=== PATIENT | female | born 1995 | race Caucasian/White ===

== ENCOUNTER 2020-03-11 18:11 | Outpatient (CLI) | payer OTHER ==
[2020-03-11 19:33] VITALS: BP 134/89; PULSE 117; RESP 16; TEMP 98
--- NOTE | 2020-03-19 10:02 | P.MSEPDOC ---
Presenting Problems - Arrival Data Date of Arrival on Unit: 03/11/20 Time of Arrival on Unit: 18:10 Mode of Transport: Ambulatory - Complaint OB-Reason for Admission/Chief Complaint: Rule Out SROM Medical History - Information : 1 Para: 0 Term: 0 : 0 Abortions: Spontaneous or Elective: 0 Number of Living Children: 0 - Gestational Age Gestational Age by SHAWN (wks/days): 33 Weeks and 5 Days - History Comment: leaking yellow discharge for 2 weeks. ? srom Review of Systems - Review of Systems Constitutional: No problems Breast: No problems ENT: No problems Cardiovascular: No problems Respiratory: No problems Gastrointestinal: No problems Genitourinary: No problems Musculoskeletal: No problems Neurological: No problems Skin: No problems Vital Signs - Temperature Temperature: 98.0 F Temperature Source: Temporal Artery Scan - Pulse Apical Pulse Rate: 117 Pulse Assessment Method: Auscultation - Respirations Respiratory Rate: 16 Oxygen Delivery Method: Room Air - Blood Pressure Right Arm Blood Pressure: 134/89 Blood Pressure Mean: 104 Blood Pressure Source: Automatic Cuff Medical Screen Scoring (Pre) - Cervical Exam Dilation: 0 cm = 0 Effacement: Exam Deferred Membranes: Intact - Uterine Contractions Frequency: N/A Duration: N/A Intensity: N/A - Maternal Vital Signs Maternal Temperature: N/A Maternal Blood Pressure: N/A Signs of Preeclampsia: N/A Maternal Respirations: N/A - Maternal Trauma Maternal Trauma: N/A - Assessment - Baby A Baseline FHR: 140 Heart Rate - NICHD Category: Category I (Normal) = 0 NST: Reactive Position: N/A Station: N/A - Total Score - Baby A Total Score - Baby A: 0 - Total Score - Baby B Total Score - Baby B: 0 - Total Score - Baby C Total Score - Baby C: 0 - Level of Risk - Baby A Level of Risk - Baby A: Low (0-5) - Level of Risk - Baby B Level of Risk - Baby B: Low (0-5) - Level of Risk - Baby C Level of Risk - Baby C: Low (0-5) Physician Notification (Pre) - Physician Notified Physician Notified Date: 03/11/20 Physician Notified Time: 19:00 New Order Received: Yes (may be discharged home with instructions) - Notification Comment Comment: neg amnisure. yellow small amt mucussy discharge noted with exam . closed thick high cervix. Disposition - Disposition OB Disposition: Discharge to home Discharge Date: 03/11/20 Discharge Time: 19:10 I agree with the RN Medical Screening Exam: Yes Risk & Benefit of care provided described in d/c instruction: Yes Diagnosis: FALSE LABOR BEFORE 37 COMPLETED WEEKS OF GEST, THIRD TRI
== END 2020-03-11 19:15 | disposition home or self-care (01) ==
LOC: FBPOP 18:11
PROVIDERS: ATTEND Obstetrics & Gynecology
DX: O47.00 False labor before 37 completed weeks of gestation, unspecified trimester (principal); Z3A.33 33 weeks gestation of pregnancy
CPT/HCPCS: 59025; 84112; G0463; 99213

== ENCOUNTER 2020-03-28 17:10 | Outpatient (CLI) | payer BC, OTHER ==
[2020-03-28] MEDS ORDERED: ACETAMINOPHEN TAB 325 MG TAB PO STA (17:56)
[2020-03-28 18:30] LABS: Basophils # (A) 0.1 k/uL (0-0.2); Basophils % (A) 1 %; Eosinophils # (A) 0.1 k/uL (0-0.7); Eosinophils % (A) 1 %; HCT 42.9 % (34.0-46.0); Lymphocytes # (A) 1.5 k/uL (1.0-4.8); Lymphocytes % (A) 10 %; MCH 30.5 pg (25.0-35.0); MCHC 32.6 g/dL (31.0-37.0); MCV 93.5 fL (80.0-100.0); Mean Platelet Volume 8.1; Monocytes # (A) 0.8 k/uL (0-1.0); Monocytes % (A) 5 %; Neutrophils # (A) 13.3 k/uL (1.3-7.7); Neutrophils % (A) 84 %; Platelet Count 236 k/uL (150-450); RBC 4.59 m/uL (3.80-5.40); RDW 12.6 % (11.5-15.5); WBC 15.9 k/uL (3.8-10.6)
[2020-03-28 18:45] VITALS: PULSE 113; RESP 16; TEMP 98
[2020-03-28 18:46] LABS: ALT 12 U/L (4-34); AST 20 U/L (14-36); African American GFR (CKD) >90 (>60 ml/min/1.73 sqM); Blood Urea Nitrogen 8 mg/dL (7-17); LDH 357 U/L (313-618); Non-African American GFR(CKD) >90 (>60 ml/min/1.73 sqM); Uric Acid 4.1 mg/dL (3.7-7.4)
[2020-03-28 19:05] LABS: Appearance,Urine Clear (Clear); Bilirubin,Urine Negative (Negative); Blood,Urine Negative (Negative); Color,Urine Light Yellow; Glucose,Urine (UA) Negative (Negative); Ketones,Urine Negative (Negative); Leukocyte Esterase,Urine Negative (Negative); Nitrite,Urine Negative (Negative); Protein,Urine Negative (Negative); Specific Gravity,Urine 1.008 (1.001-1.035); Urobilinogen,Urine <2.0 mg/dL (<2.0)
[2020-03-28 19:16] LABS: Protein/Creatinine Ratio,Urine 0.272
[2020-03-28 19:40] VITALS: BP 120/74
--- NOTE | 2020-03-29 06:16 | P.MSEPDOC ---
Presenting Problems - Arrival Data Date of Arrival on Unit: 03/28/20 Time of Arrival on Unit: 17:30 Mode of Transport: Ambulatory - Complaint OB-Reason for Admission/Chief Complaint: Possible Onset of Labor, Headache, Pain Comment: hernandez pain=5 and back pain=2-3 Medical History - Information : 1 Para: 0 Term: 0 : 0 Abortions: Spontaneous or Elective: 0 Number of Living Children: 0 - Gestational Age Gestational Age by SHAWN (wks/days): 36 Weeks and 1 Days - History Comment: states back pain and cramping since wednesday. lost "mucus plug" today. head ache all .day today Review of Systems - Review of Systems Constitutional: No problems Breast: No problems ENT: No problems Cardiovascular: No problems Respiratory: No problems Gastrointestinal: No problems Genitourinary: No problems Musculoskeletal: No problems Neurological: No problems Skin: No problems Vital Signs - Temperature Temperature: 98.0 F Temperature Source: Temporal Artery Scan - Pulse Right Apical Pulse Rate: 113 Pulse Assessment Method: Auscultation - Respirations Respiratory Rate: 16 - Blood Pressure Right Arm Blood Pressure: 120/74 Blood Pressure Mean: 89 Blood Pressure Source: Automatic Cuff Medical Screen Scoring (Pre) - Cervical Exam Dilation: 1-3 cm = 1 Effacement: Exam Deferred Membranes: Intact - Uterine Contractions Frequency: N/A Duration: N/A Intensity: N/A - Maternal Vital Signs Maternal Temperature: N/A Maternal Blood Pressure: N/A Signs of Preeclampsia: Headache = 1 Maternal Respirations: N/A - Maternal Trauma Maternal Trauma: N/A - Assessment - Baby A Baseline FHR: 135 Heart Rate - NICHD Category: Category I (Normal) = 0 NST: Reactive Position: N/A Station: N/A - Total Score - Baby A Total Score - Baby A: 2 - Total Score - Baby B Total Score - Baby B: 2 - Total Score - Baby C Total Score - Baby C: 2 - Level of Risk - Baby A Level of Risk - Baby A: Low (0-5) - Level of Risk - Baby B Level of Risk - Baby B: Low (0-5) - Level of Risk - Baby C Level of Risk - Baby C: Low (0-5) Physician Notification (Pre) - Physician Notified Physician Notified Date: 03/28/20 Physician Notified Time: 18:10 New Order Received: Yes ([facility] LABS) Medical Screen Scoring (Post) - Cervical Exam Dilation: Exam Deferred Effacement: Exam Deferred Membranes: Intact - Uterine Contractions Frequency: > 5 minutes apart = 1 Duration: N/A Intensity: N/A - Maternal Vital Signs Maternal Temperature: N/A Maternal Blood Pressure: N/A Signs of Preeclampsia: N/A Maternal Respirations: N/A - Pain Assessment Pain Scale Used: Numeric (1 - 10) Pain Intensity: 0 - Maternal Trauma Maternal Trauma: N/A - Assessment - Baby A Heart Rate: 130 Heart Rate - NICHD Category: Category I (Normal) = 0 NST: Reactive Position: N/A Station: N/A - Total Score Total Score - Baby A: 1 Total Score - Baby B: 1 Total Score - Baby C: 1 - Post Treatment Level of Risk Post Treatment Level of Risk - Baby A: Low (0-5) Post Treatment Level of Risk - Baby B: Low (0-5) Post Treatment Level of Risk - Baby C: Low (0-5) Physician Notification (Post) - Physician Notified Physician Notified Date: 03/28/20 Physician Notified Time: 19:25 Physician/Practitioner Notified:: Dr. Smith Spoke With: Dr. Smith New Order Received: Yes - Notification Comment Comment: Dr. Smith called, report given on pt's labs WNL, protein/visitor information assistant ratio 0.272,. AST/ALT WNL, no protein in the urine. Pt's most recent BP was 120/74 and BPs have been. trending down since initial admission. Pt denies any HERNANDEZ or other symptoms and has her. next appointment on . Orders to discharge pt home with instructions to monitor for. s/s of PIH and call office tomorrow to make an appointment with Dr. Newberry for wednesday. instead of . Disposition - Disposition OB Disposition: Discharge to home Discharge Date: 03/28/20 Discharge Time: 19:30 I agree with the RN Medical Screening Exam: Yes Risk & Benefit of care provided described in d/c instruction: Yes Diagnosis: GESTATIONAL HTN W/O SIGNIFICANT PROTEINURIA, THIRD TRIMESTER
== END 2020-03-28 19:30 | disposition home or self-care (01) ==
LOC: FBPOP 17:10
PROVIDERS: ATTEND Obstetrics & Gynecology
DX: O13.2 Gestational [pregnancy-induced] hypertension without significant proteinuria, second trimester (principal); Z3A.36 36 weeks gestation of pregnancy
CPT/HCPCS: 59025; 81003; 82565; 82570; 83615; 84156; 84450; 84460; 84520; 84550; 85025; 99215

== ENCOUNTER 2020-04-09 17:36 | Inpatient (IN) | payer BC, OTHER ==
[2020-04-09] MEDS ORDERED: METHYLERGONOVINE 0.2 MG/ML 1 ML AMP IM PRN (18:57)
[2020-04-09] MEDS ORDERED: CARBOPROST TROMETHAMINE 250 MCG/ML 1 ML AMP IM PRN (18:57)
[2020-04-09] MEDS ORDERED: LIDOCAINE 0.5% (PF) 5 MG/ML (50 ML SDV) SQ PRN (18:57)
[2020-04-09] MEDS ORDERED: OXYTOCIN 10 UNIT/ML 1 ML VIAL IM PRN (18:57)
[2020-04-09] MEDS ORDERED: TERBUTALINE 1 MG/ML VIAL SQ PRN (18:57)
[2020-04-09] MEDS ORDERED: AMPICILLIN 2,000 MG in SODIUM CHLORIDE 0.9% 100 ML IVPB STA (18:57)
[2020-04-09] MEDS ORDERED: OXYTOCIN 30 UNITS/500 ML NS 30 UNIT in SALINE 1 500ML.BAG IV SCH (19:00)
[2020-04-09] MEDS: LACTATED RINGERS 1,000 ML IV SCH (19:52)
[2020-04-09 19:56] LABS: Appearance,Urine Clear (Clear); Bilirubin,Urine Negative (Negative); Blood,Urine Negative (Negative); Color,Urine Colorless; Glucose,Urine (UA) Negative (Negative); Ketones,Urine 1+ (Negative); Leukocyte Esterase,Urine Negative (Negative); Nitrite,Urine Negative (Negative); Protein,Urine Negative (Negative); Specific Gravity,Urine 1.003 (1.001-1.035); Urobilinogen,Urine <2.0 mg/dL (<2.0)
[2020-04-09 20:01] LABS: Basophils # (A) 0.2 k/uL (0-0.2); Basophils % (A) 1 %; Eosinophils # (A) 0.2 k/uL (0-0.7); Eosinophils % (A) 1 %; HCT 42.9 % (34.0-46.0); Lymphocytes # (A) 1.4 k/uL (1.0-4.8); Lymphocytes % (A) 8 %; MCH 30.1 pg (25.0-35.0); MCHC 32.6 g/dL (31.0-37.0); MCV 92.2 fL (80.0-100.0); Mean Platelet Volume 8.7; Monocytes # (A) 0.5 k/uL (0-1.0); Monocytes % (A) 3 %; Neutrophils # (A) 14.9 k/uL (1.3-7.7); Neutrophils % (A) 86 %; Platelet Count 238 k/uL (150-450); RBC 4.65 m/uL (3.80-5.40); RDW 12.6 % (11.5-15.5); WBC 17.3 k/uL (3.8-10.6)
[2020-04-09 20:13] LABS: ALT 10 U/L (4-34); AST 22 U/L (14-36); African American GFR (CKD) >90 (>60 ml/min/1.73 sqM); Blood Urea Nitrogen 7 mg/dL (7-17); Non-African American GFR(CKD) >90 (>60 ml/min/1.73 sqM); Uric Acid 4.6 mg/dL (3.7-7.4)
[2020-04-09 20:18] LABS: Protein/Creatinine Ratio,Urine 0.639
[2020-04-09 20:23] LABS: INR 0.9 (<1.2); Prothrombin Time 9.3 sec (9.0-12.0)
[2020-04-09] MEDS ORDERED: BUTORPHANOL 1 MG/ML 1 ML VIAL IV PRN (21:10)
[2020-04-09] MEDS: AMPICILLIN 1,000 MG in SODIUM CHLORIDE 0.9% 50 ML IVPB SCH (23:56)
--- NOTE | 2020-04-10 00:44 | P.MSEPDOC ---
Presenting Problems - Arrival Data Date of Arrival on Unit: 04/09/20 Time of Arrival on Unit: 18:42 Mode of Transport: Ambulatory - Complaint OB-Reason for Admission/Chief Complaint: Possible Onset of Labor Comment: pt arrived c/o contractions since noon today but denies any leaking of fluid. pt states her b/p has been up last week and she had lab drawn at that time Medical History - Information : 1 Para: 0 Term: 0 : 0 Abortions: Spontaneous or Elective: 0 Number of Living Children: 0 - Gestational Age Gestational Age by SHAWN (wks/days): 37 Weeks and 6 Days - History Complications: Preeclampsia, GBS+ Review of Systems - Review of Systems Constitutional: No problems Breast: No problems ENT: No problems Cardiovascular: No problems Respiratory: No problems Gastrointestinal: No problems Genitourinary: No problems Musculoskeletal: No problems Neurological: No problems Skin: No problems Vital Signs - Pulse Right Brachial Pulse Rate: 109 Pulse Assessment Method: Automatic Cuff - Respirations Respiratory Rate: 16 Oxygen Delivery Method: Room Air - Blood Pressure Right Arm Blood Pressure: 136/97 Blood Pressure Mean: 110 Blood Pressure Source: Automatic Cuff Medical Screen Scoring (Pre) - Cervical Exam Dilation: 1-3 cm = 1 Effacement: More than 50% = 2 Membranes: Intact - Uterine Contractions Frequency: > or = 36 weeks =2 Duration: > 40 seconds = 2 Intensity: N/A - Maternal Vital Signs Maternal Temperature: N/A Maternal Blood Pressure: Diastolic > 89 = 1 Signs of Preeclampsia: N/A Maternal Respirations: N/A - Maternal Trauma Maternal Trauma: N/A - Assessment - Baby A Baseline FHR: 130 Heart Rate - NICHD Category: Category I (Normal) = 0 NST: Reactive Position: N/A Station: N/A - Total Score - Baby A Total Score - Baby A: 8 - Total Score - Baby B Total Score - Baby B: 8 - Total Score - Baby C Total Score - Baby C: 8 - Level of Risk - Baby A Level of Risk - Baby A: Medium (6-9) - Level of Risk - Baby B Level of Risk - Baby B: Medium (6-9) - Level of Risk - Baby C Level of Risk - Baby C: Medium (6-9) Physician Notification (Pre) - Physician Notified Physician Notified Date: 04/09/20 Physician Notified Time: 18:40 New Order Received: Yes - Notification Comment Comment: admit pt for induction of labor and do preeclampsia workup Disposition - Disposition OB Disposition: Admit I agree with the RN Medical Screening Exam: Yes Risk & Benefit of care provided described in d/c instruction: Yes Diagnosis: UNSPECIFIED PRE-ECLAMPSIA, THIRD TRIMESTER
[2020-04-10] MEDS: AMPICILLIN 1,000 MG in SODIUM CHLORIDE 0.9% 50 ML IVPB SCH ×2 (03:59→08:05)
[2020-04-10] MEDS: LACTATED RINGERS 1,000 ML IV SCH ×2 (04:00→05:39)
[2020-04-10] MEDS ORDERED: ROPIVACAINE 5MG/ML 20ML VIAL ONE (05:11)
[2020-04-10] MEDS ORDERED: SODIUM CHLORIDE 0.9% 100 ML BAG ONE (05:11)
[2020-04-10] MEDS ORDERED: fentaNYL (PF) 50 MCG/ML 5 ML AMP ONE (05:11)
--- NOTE | 2020-04-10 06:22 | P.HPOB ---
History of Present Illness H&P Date: 04/09/20 Chief Complaint: contractions, high bp J4-year-old presents at 37 weeks and 6 days complaining of contractions. Her cervix was only 1-2 cm dilated, 70% effaced, and -2 station. She was hailey every 3-5 minutes. heart tones 135 with moderate variability and reactive. When she presented her blood pressure was also quite elevated at 140/100. She had a previous episode of high blood pressures a week ago so the very least she has gestational hypertension which requires delivery. When she is admitted labs were drawn and the PC ratio was 0.6, indicating preeclampsia. She denies headache, nausea, right upper quadrant pain, vision changes, fever or chills. She is being admitted for induction of labor. Review of Systems All systems: negative Constitutional: Denies chills, Denies fever Eyes: denies blurred vision, denies pain Ears, nose, mouth and throat: Denies headache, Denies sore throat Cardiovascular: Denies chest pain, Denies shortness of breath Respiratory: Denies cough Gastrointestinal: Denies abdominal pain, Denies diarrhea, Denies nausea, Denies vomiting Genitourinary: Denies dysuria, Denies hematuria Musculoskeletal: Denies myalgias Integumentary: Denies pruritus, Denies rash Neurological: Denies numbness, Denies weakness Psychiatric: Denies anxiety, Denies depression Endocrine: Denies fatigue, Denies weight change Past Medical History Past Medical History: No Reported History Additional Past Medical History / Comment(s): Obstetrical history: This is her first . Her blood type is O+, abs negative, rubella nonimmune, hepatitis B B-, HIV negative, GBS positive. She had an episode of some high blood pressures last week that resolved and presented labs were normal. This week when she came in with high blood pressure her labs indicated she does have preeclampsia. History of Any Multi-Drug Resistant Organisms: None Reported Past Surgical History: Appendectomy Past Anesthesia/Blood Transfusion Reactions: No Reported Reaction Past Psychological History: No Psychological Hx Reported Smoking Status: Former smoker Past Drug Use History: None Reported - Past Family History Father Family Medical History: Hyperlipidemia, Hypertension Medications and Allergies Home Medications Medication Instructions Recorded Confirmed Type Pnv,Calcium 72/Iron/Folic Acid 1 each PO DAILY 03/11/20 04/09/20 History [ Plus Tablet] Allergies Allergy/AdvReac Type Severity Reaction Status Date / Time No Known Allergies Allergy Verified 04/09/20 17:39 Exam Osteopathic Statement: *. No significant issues noted on an osteopathic structural exam other than those noted in the History and Physical/Consult. Vital Signs Pulse Resp BP 04/10/20 00:44 109 H 16 136/97 04/09/20 19:10 109 H 16 136/97 04/09/20 18:53 109 H 16 136/97 Intake and Output 04/09/20 04/09/20 04/10/20 14:59 22:59 06:59 Other: # Voids 1 Weight 91.626 kg Heart: Regular rate and rhythm Lungs: Clear to auscultation bilaterally Abdomen: Soft, nontender Extremities: Negative Homans sign Results Result Diagrams: 04/09/20 19:49 04/09/20 19:49 Abnormal Lab Results - Last 24 Hours (Table) 04/09/20 04/09/20 04/09/20 Range/Units 19:01 19:49 19:49 WBC 17.3 H (3.8-10.6) k/uL Neutrophils # 14.9 H (1.3-7.7) k/uL Fibrinogen 540 H (200-500) mg/dL Urine Ketones 1+ H (Negative) Assessment and Plan (1) Preeclampsia Current Visit: Yes Status: Acute Code(s): O14.90 - UNSPECIFIED PRE- ECLAMPSIA, UNSPECIFIED TRIMESTER SNOMED Code(s): 033148864 Plan: 1. Admit to family place 2. Monitor closely 3. Induction of labor with amniotomy and Pitocin 4. Anticipate normal vaginal delivery
[2020-04-10] MEDS ORDERED: LANOLIN CREAM 5 GM TUBE TOPICAL PRN (08:51)
[2020-04-10] MEDS ORDERED: BENZOCAINE/MENTHOL SPRAY 1 GM/SPRAY AEROSOL TOPICAL PRN (08:51)
[2020-04-10] MEDS ORDERED: ZOLPIDEM 5 MG TAB PO PRN (08:51)
[2020-04-10] MEDS ORDERED: MEASLES-MUMPS-RUBELLA VACC/PF 12,500 UNIT/0.5 ML VIAL SQ ONE (08:51)
[2020-04-10] MEDS ORDERED: diphenhydrAMINE 50 MG/ML 1 ML VIAL IVP PRN ×2 (08:51)
[2020-04-10] MEDS ORDERED: ACETAMINOPHEN TAB 325 MG TAB PO PRN (08:51)
[2020-04-10] MEDS ORDERED: diphenhydrAMINE 50 MG CAP PO PRN (08:51)
[2020-04-10] MEDS ORDERED: diphenhydrAMINE 25 MG CAP PO PRN (08:51)
[2020-04-10] MEDS ORDERED: HYDROCORTISONE 2.5% RECTAL CREAM 30 GM TUBE RECTAL PRN (08:51)
[2020-04-10] MEDS ORDERED: SIMETHICONE 80 MG CHEWABLE PO PRN (08:51)
--- NOTE | 2020-04-10 08:51 | P.PROBDLV ---
Vaginal Delivery Note - . Vaginal Delivery Note: 24-year-old presents at 37 weeks and 6 days admitted for induction of labor due to preeclampsia. Her cervix was only 1-2 cm dilated, 70% effaced, and -2 station. She was hailey every 3-5 minutes. heart tones 135 with moderate variability and reactive. Ampicillin was started for GBS prophylaxis Pitocin was started. Amniotomy performed at 20-36 and patient was 2-37 m dilated, 70% effaced, and -2 station. She is hailey every 2-4 minutes. Fe blanca heart tones 135 with moderate variability and reactive. She progressed slowly throughout the night and when she was 4 cm she did get an epidural around 5 AM. She quickly progressed to complete at 8:08 AM, pushed and delivered a viable male over midline episiotomy under epidural anesthesia at 8:20 AM. The patient had pushed to a large crown but could not get the baby past that episiotomy had been made. Head delivered OA, anterior shoulder delivered gentle downward guidance for by posterior shoulder and rest of body. Nose and mouth bulb suctioned, cord clamped and cut, placed on mother's abdomen. Apgars 9, 9, weight 6 lbs. 15 oz. Placenta delivered spontaneously, intact with three- vessel cord at 831. Vagina, cervix, and perineum were inspected. Second-degree midline episiotomy was repaired with 2-0 Vicryl and 3-0 Vicryl. Estimated blood loss 500 mL. Mother and baby in stable condition.
[2020-04-10] MEDS ORDERED: OXYTOCIN 20 UNITS/1000 ML NS 1,000 ML IV SCH (09:00)
[2020-04-10] MEDS: SENNOSIDES-DOCUSATE SODIUM 1 EACH TAB PO SCH ×2 (09:17→20:27)
[2020-04-10] MEDS: IBUPROFEN 600 MG TAB PO PRN ×2 (09:18→20:28)
[2020-04-10 20:47] VITALS: RESP 18
[2020-04-11] MEDS: IBUPROFEN 600 MG TAB PO PRN (04:22)
[2020-04-11 07:28] LABS: Basophils # (A) 0.1 k/uL (0-0.2); Basophils % (A) 0 %; Eosinophils # (A) 0.1 k/uL (0-0.7); Eosinophils % (A) 1 %; HCT 30.8 % (34.0-46.0); Lymphocytes # (A) 2.4 k/uL (1.0-4.8); Lymphocytes % (A) 18 %; MCH 30.9 pg (25.0-35.0); MCHC 33.2 g/dL (31.0-37.0); MCV 93.1 fL (80.0-100.0); Mean Platelet Volume 9.3; Monocytes # (A) 0.7 k/uL (0-1.0); Monocytes % (A) 6 %; Neutrophils % (A) 75 %; Platelet Count 168 k/uL (150-450); RBC 3.31 m/uL (3.80-5.40); RDW 12.5 % (11.5-15.5); WBC 13.5 k/uL (3.8-10.6)
[2020-04-11 07:41] LABS: HGB 10.2 gm/dL (11.4-16.0)
[2020-04-11 07:47] VITALS: BP 113/71; PULSE 66; TEMP 97.7
--- NOTE | 2020-04-11 09:12 | P.DS ---
Providers Date of admission: 04/09/20 18:44 Expected date of discharge: 04/11/20 Attending physician: Kenrda Newberry Primary care physician: Stated None - Discharge Diagnosis(es) (1) Preeclampsia Current Visit: Yes Status: Acute (2) Normal vaginal delivery Current Visit: Yes Status: Acute Hospital Course: Patient presented for induction of labor for preeclampsia. She underwent normal vaginal delivery. course was uncomplicated. She denies headache, nausea, right upper quadrant pain, vision changes, sinus of breath or any chest pain. Her blood pressures have been normal. She'll be discharged home day #1 in stable condition to follow-up with me in 6 weeks. Plan - Discharge Summary New Discharge Prescriptions: New Ibuprofen [Motrin] 600 mg PO Q6HR PRN #30 tab PRN Reason: Mild Pain Or Fever >= 100.5 No Action Pnv,Calcium 72/Iron/Folic Acid [ Plus Tablet] 1 each PO DAILY Discharge Medication List Pnv,Calcium 72/Iron/Folic Acid [ Plus Tablet] 1 each PO DAILY 03/11/20 [History] Ibuprofen [Motrin] 600 mg PO Q6HR PRN #30 tab 04/11/20 [Rx] Follow up Appointment(s)/Referral(s): Kendra Newberry DO [Doctor of Osteopathic Medicine] - 6 Weeks Discharge Disposition: HOME SELF-CARE
[2020-04-11] MEDS ORDERED: INFLUENZA VACCINE (6 MOS+) 60 MCG/0.5 ML SYRINGE IM ONE (11:00)
== END 2020-04-11 13:45 | disposition home or self-care (01) | DRG 807 ==
LOC: FBPOP 17:36 → 4FBP 18:44
PROVIDERS: ADMIT Obstetrics & Gynecology; ATTEND Obstetrics & Gynecology
PROC: 3E0R3BZ Introduction of Anesthetic Agent into Spinal Canal, Percutaneous Approach (ICD-10-PCS; principal; 2020-04-10)
PROC: 0W8NXZZ Division of Female Perineum, External Approach (ICD-10-PCS; principal; 2020-04-10)
PROC: 3E033VJ Introduction of Other Hormone into Peripheral Vein, Percutaneous Approach (ICD-10-PCS; principal; 2020-04-10)
PROC: 3E0134Z Introduction of Serum, Toxoid and Vaccine into Subcutaneous Tissue, Percutaneous Approach (ICD-10-PCS; principal; 2020-04-10)
PROC: 00HU33Z Insertion of Infusion Device into Spinal Canal, Percutaneous Approach (ICD-10-PCS; principal; 2020-04-10)
PROC: 10907ZC Drainage of Amniotic Fluid, Therapeutic from Products of Conception, Via Natural or Artificial Opening (ICD-10-PCS; principal; 2020-04-10)
PROC: 10E0XZZ Delivery of Products of Conception, External Approach (ICD-10-PCS; principal; 2020-04-10)
PROC: 3E02340 Introduction of Influenza Vaccine into Muscle, Percutaneous Approach (ICD-10-PCS; 2020-04-11)
DX: O14.94 Unspecified pre-eclampsia, complicating childbirth (principal); Z37.0 Single live birth; Z3A.37 37 weeks gestation of pregnancy; O99.824 Streptococcus B carrier state complicating childbirth; Z79.899 Other long term (current) drug therapy; Z87.891 Personal history of nicotine dependence; Z90.49 Acquired absence of other specified parts of digestive tract; Z87.19 Personal history of other diseases of the digestive system; Z98.890 Other specified postprocedural states; Z82.49 Family history of ischemic heart disease and other diseases of the circulatory system; Z83.49 Family history of other endocrine, nutritional and metabolic diseases; Z23 Encounter for immunization
CPT/HCPCS: 59025; 81003; 82565; 82570; 84156; 84450; 84460; 84520; 84550; 85025; 85384; 85610; 85730; 86850; 86900; 86901; 88307; 90686; 90707; 99215

== ENCOUNTER 2021-08-08 14:53 | Emergency (ER) | payer BC, OTHER ==
[2021-08-08 15:11] VITALS: TEMP 98.1
[2021-08-08] MEDS ORDERED: MORPHINE SULFATE 2 MG/ML SYRINGE IVP STA (15:58)
[2021-08-08] MEDS ORDERED: ONDANSETRON 4 MG/2 ML VIAL IVP STA (15:58)
[2021-08-08] MEDS ORDERED: FAMOTIDINE 20 MG/2 ML VIAL IV STA (15:58)
[2021-08-08] MEDS ORDERED: diphenhydrAMINE 50 MG/ML 1 ML VIAL IVP STA (15:58)
[2021-08-08] MEDS ORDERED: SODIUM CHLORIDE 0.9% 1,000 ML IV STA (15:58)
[2021-08-08 16:00] LABS: Appearance,Urine Clear (Clear); Basophils % (A) 0 %; Bilirubin,Urine Negative (Negative); Blood,Urine Negative (Negative); Color,Urine Light Yellow; Eosinophils # (A) 0.1 k/uL (0-0.7); Eosinophils % (A) 2 %; Glucose,Urine (UA) Negative (Negative); HCT 46.3 % (34.0-46.0); HGB 14.8 gm/dL (11.4-16.0); Ketones,Urine Negative (Negative); Leukocyte Esterase,Urine Negative (Negative); Lymphocytes # (A) 1.4 k/uL (1.0-4.8); Lymphocytes % (A) 20 %; MCH 30.6 pg (25.0-35.0); MCV 95.7 fL (80.0-100.0); Mean Platelet Volume 8.6; Monocytes # (A) 0.3 k/uL (0-1.0); Monocytes % (A) 5 %; Neutrophils % (A) 72 %; Nitrite,Urine Negative (Negative); PH, Urine 6.5 (5.0-8.0); Platelet Count 302 k/uL (150-450); Protein,Urine Negative (Negative); RBC 4.84 m/uL (3.80-5.40); RDW 12.7 % (11.5-15.5); Specific Gravity,Urine 1.006 (1.001-1.035); Urobilinogen,Urine <2.0 mg/dL (<2.0); WBC 6.9 k/uL (3.8-10.6)
[2021-08-08 16:09] LABS: ALT 12 U/L (4-34); AST 19 U/L (14-36); African American GFR (CKD) >90 (>60 ml/min/1.73 sqM); Albumin 4.7 g/dL (3.5-5.0); Alkaline Phosphatase 84 U/L (38-126); Amylase 74 U/L (30-110); Anion Gap 11 mmol/L; Blood Urea Nitrogen 10 mg/dL (7-17); Calcium 9.4 mg/dL (8.4-10.2); Carbon Dioxide 21 mmol/L (22-30); Chloride 108 mmol/L (98-107); Glucose 95 mg/dL (74-99); Lipase 259 U/L (23-300); Non-African American GFR(CKD) 81 (>60 ml/min/1.73 sqM); Sodium 140 mmol/L (137-145); Total Bilirubin 0.6 mg/dL (0.2-1.3)
[2021-08-08 16:30] LABS: Partial Thromboplastin Time 24.8 sec (22.0-30.0)
--- NOTE | 2021-08-08 16:32 | ED ---
General Adult HPI - General Chief complaint: Abdominal Pain Stated complaint: chest/Abd pain Time Seen by Provider: 08/08/21 15:16 Source: patient, RN notes reviewed, old records reviewed Mode of arrival: ambulatory Limitations: no limitations - History of Present Illness Initial comments: Patient is a 26-year-old female with past medical history remarkable for nothing, resents concerned for possible "gallbladder attacks." She denies any history of workup for this pain, however hasthat she get some right upper quadrant and epigastric abdominal discomfort with pain and nausea and vomiting. It is been more persistent over the last 4 days. She states she did have episodes of nonbilious nonbloody emesis yesterday. Denies any chest pain, shortness of breath, fevers, chills, sick contacts. States she is not . Denies any diarrhea. Has no other acute point at this time. Denies any history of abdominal surgeries. Denies any dysuria or hematuria. Denies any vaginal discharge or bleeding. Has no other acute complaints at this time. Describes the pain as an achy, sharp sensation that does radiate to her right shoulder. Denies any history of drug use, alcohol abuse, pancreatitis. - Related Data Home Medications Medication Instructions Recorded Confirmed Ondansetron Odt [Zofran Odt] 8 mg PO Q8H PRN 08/08/21 08/08/21 SUMAtriptan succinate [Imitrex] 50 mg PO BID PRN 08/08/21 08/08/21 Topiramate [Trokendi Xr] 50 mg PO DAILY 08/08/21 08/08/21 Previous Rx's Medication Instructions Recorded Famotidine [Pepcid] 20 mg PO DAILY 14 Days #14 tablet 08/08/21 Mag Hydrox/Al Hydrox/Simeth 30 ml PO BID PRN #500 ml 08/08/21 [Maalox] Allergies Allergy/AdvReac Type Severity Reaction Status Date / Time No Known Allergies Allergy Verified 08/08/21 16:27 Review of Systems ROS Statement: Those systems with pertinent positive or pertinent negative responses have been documented in the HPI. Review of Systems: CONST: Denies fever EYES: Denies blurry vision ENT: Denies nasal congestion C/V: Denies Chest pain RESP: Denies shortness of breath GI: Endorses abdominal pain : Denies dysuria SKIN: Denies rash. MSK: Denies joint pain. NEURO: Denies headache ROS Other: All systems not noted in ROS Statement are negative. Past Medical History Past Medical History: No Reported History Additional Past Medical History / Comment(s): migraines History of Any Multi-Drug Resistant Organisms: None Reported Past Surgical History: Appendectomy Past Anesthesia/Blood Transfusion Reactions: No Reported Reaction Past Psychological History: No Psychological Hx Reported Smoking Status: Former smoker, Vaper Past Alcohol Use History: Occasional Past Drug Use History: None Reported - Past Family History Father Family Medical History: Hyperlipidemia, Hypertension General Exam - General Exam Comments Initial Comments: General: Appears in no acute distress. HEAD: Normal with no signs of head trauma. EYES: PERRLA, EOMI, conjunctiva normal, no discharge. ENT: Hearing grossly intact, normal oropharynx. RESPIRATORY: Clear breath sounds bilaterally. No wheezes, rales, or rhonchi. C/V: Regular rate and rhythm. S1 and S2 auscultated, no edema, peripheral pulses 2+ and intact throughout ABD: Abdomen soft, nondistended. Mildly tender to palpation epigastric and right upper quadrant. No guarding. No peritoneal signs. No rebound tenderness. Relatively unremarkable abdominal exam. EXT: Normal range of motion, no obvious deformity SKIN: No rashes or lesions observed on exposed skin. NEURO: Alert and oriented 4. Limitations: no limitations Course Vital Signs 08/08/21 08/08/21 15:08 18:05 Temperature 98.1 F Pulse Rate 91 83 Respiratory 20 18 Rate Blood Pressure 142/91 134/93 O2 Sat by Pulse 100 100 Oximetry Medical Decision Making - Medical Decision Making Based on the patient's presentation and physical exam, I'm concerned for possible hepatobiliary pathology for current symptoms, cannot rule out cho lecystitis or biliary colic. We will obtain a right upper quadrant ultrasound as well as abdominal laboratory studies. Patient will be fluid hydrated as well as empirically treated with IV Zofran, morphine, famotidine, Benadryl. She was in agreement with this plan. Patient's ultrasound was unremarkable. Laboratory studies were remarkable for a normal urine study. Abdominal labs are unremarkable otherwise. On reevaluation, patient is feeling improved. I did discuss results of her imaging and labs with her. She is tolerating by mouth intake. I do believe it is safe for her to be discharged home at this time. She was in agreement this plan. test is pending, however she states that she is not . Advise she use a bland diet over the next few days return if any of her symptoms worsen. She was in agreement this plan. I will provide the patient with a prescription for Maalox, famotidine. I instructed the patient to follow up with their PCP in the next 3 days. [I provided contact information for follow up with] gastroenterology. I explained that the patient should return to the emergency department if they experience any worsening symptoms. Strict return precautions were discussed with the patient. The patient expressed understanding of these instructions. I answered all questions that the patient had. The patient was discharged home in. Condition with their prescriptions and follow up information. - Lab Data Result diagrams: 08/08/21 15:50 08/08/21 15:50 Lab Results 08/08/21 08/08/21 08/08/21 Range/Units 15:50 15:50 15:50 WBC 6.9 (3.8-10.6) k/uL RBC 4.84 (3.80-5.40) m/uL Hgb 14.8 (11.4-16.0) gm/dL Hct 46.3 H (34.0-46.0) % MCV 95.7 (80.0-100.0) fL MCH 30.6 (25.0-35.0) pg MCHC 32.0 (31.0-37.0) g/dL RDW 12.7 (11.5-15.5) % Plt Count 302 (150-450) k/uL MPV 8.6 Neutrophils % 72 % Lymphocytes % 20 % Monocytes % 5 % Eosinophils % 2 % Basophils % 0 % Neutrophils # 5.0 (1.3-7.7) k/uL Lymphocytes # 1.4 (1.0-4.8) k/uL Monocytes # 0.3 (0-1.0) k/uL Eosinophils # 0.1 (0-0.7) k/uL Basophils # 0.0 (0-0.2) k/uL PT 11.0 (9.0-12.0) sec INR 1.0 (<1.2) APTT 24.8 (22.0-30.0) sec Sodium (137-145) mmol/L Potassium (3.5-5.1) mmol/L Chloride (98-107) mmol/L Carbon Dioxide (22-30) mmol/L Anion Gap mmol/L BUN (7-17) mg/dL Creatinine (0.52-1.04) mg/dL Est GFR (CKD-EPI)AfAm (>60 ml/min/1.73 sqM) Est GFR (CKD-EPI)NonAf (>60 ml/min/1.73 sqM) Glucose (74-99) mg/dL Calcium (8.4-10.2) mg/dL Total Bilirubin (0.2-1.3) mg/dL AST (14-36) U/L ALT (4-34) U/L Alkaline Phosphatase (38-126) U/L Total Protein (6.3-8.2) g/dL Albumin (3.5-5.0) g/dL Amylase (30-110) U/L Lipase (23-300) U/L Urine Color Light Yellow Urine Appearance Clear (Clear) Urine pH 6.5 (5.0-8.0) Ur Specific Challenge 1.006 (1.001-1.035) Urine Protein Negative (Negative) Urine Glucose (UA) Negative (Negative) Urine Ketones Negative (Negative) Urine Blood Negative (Negative) Urine Nitrite Negative (Negative) Urine Bilirubin Negative (Negative) Urine Urobilinogen <2.0 (<2.0) mg/dL Ur Leukocyte Esterase Negative (Negative) 08/08/21 Range/Units 15:50 WBC (3.8-10.6) k/uL RBC (3.80-5.40) m/uL Hgb (11.4-16.0) gm/dL Hct (34.0-46.0) % MCV (80.0-100.0) fL MCH (25.0-35.0) pg MCHC (31.0-37.0) g/dL RDW (11.5-15.5) % Plt Count (150-450) k/uL MPV Neutrophils % % Lymphocytes % % Monocytes % % Eosinophils % % Basophils % % Neutrophils # (1.3-7.7) k/uL Lymphocytes # (1.0-4.8) k/uL Monocytes # (0-1.0) k/uL Eosinophils # (0-0.7) k/uL Basophils # (0-0.2) k/uL PT (9.0-12.0) sec INR (<1.2) APTT (22.0-30.0) sec Sodium 140 (137-145) mmol/L Potassium 4.0 (3.5-5.1) mmol/L Chloride 108 H (98-107) mmol/L Carbon Dioxide 21 L (22-30) mmol/L Anion Gap 11 mmol/L BUN 10 (7-17) mg/dL Creatinine 0.96 (0.52-1.04) mg/dL Est GFR (CKD-EPI)AfAm >90 (>60 ml/min/1.73 sqM) Est GFR (CKD-EPI)NonAf 81 (>60 ml/min/1.73 sqM) Glucose 95 (74-99) mg/dL Calcium 9.4 (8.4-10.2) mg/dL Total Bilirubin 0.6 (0.2-1.3) mg/dL AST 19 (14-36) U/L ALT 12 (4-34) U/L Alkaline Phosphatase 84 (38-126) U/L Total Protein 8.0 (6.3-8.2) g/dL Albumin 4.7 (3.5-5.0) g/dL Amylase 74 (30-110) U/L Lipase 259 (23-300) U/L Urine Color Urine Appearance (Clear) Urine pH (5.0-8.0) Ur Specific Challenge (1.001-1.035) Urine Protein (Negative) Urine Glucose (UA) (Negative) Urine Ketones (Negative) Urine Blood (Negative) Urine Nitrite (Negative) Urine Bilirubin (Negative) Urine Urobilinogen (<2.0) mg/dL Ur Leukocyte Esterase (Negative) Disposition Clinical Impression: Nausea and vomiting, Abdominal pain of unknown etiology Disposition: HOME SELF-CARE Condition: Good Instructions (If sedation given, give patient instructions): Acute Nausea and Vomiting (ED), Abdominal Pain (ED) Prescriptions: Mag Hydrox/Al Hydrox/Simeth [Maalox] 30 ml PO BID PRN #500 ml PRN Reason: Dyspepsia Famotidine [Pepcid] 20 mg PO DAILY 14 Days #14 tablet Is patient prescribed a controlled substance at d/c from ED?: No Referrals: Nonstaff,Physician [Primary Care Provider] - 1-2 days Keyanna Brewer MD [STAFF PHYSICIAN] - 1-2 days
--- NOTE | 2021-08-08 17:38 | US ---
EXAMINATION TYPE: US gallbladder DATE OF EXAM: 08/08/2021 COMPARISON: NONE CLINICAL HISTORY: RUQ pain. EC patient with severe epigastric pain, nausea and vomiting EXAM MEASUREMENTS: Liver Length: 13.3 cm Gallbladder Wall: 0.2 cm CBD: 0.2 cm Right Kidney: 10.7 x 5.2x 4.2 cm Pancreas: wnl Liver: wnl Gallbladder: wnl Evidence for sonographic Lora's sign: no CBD: wnl Right Kidney: No hydronephrosis or masses seen Main Portal Vein Size is wnl in supine view = 1.1cm A/P; appears prominent in LLD position at 1.6cm A /P. IMPRESSION: Negative exam. No gallstones or dilated ducts.
[2021-08-08 18:59] VITALS: BP 134/93; PULSE 83; RESP 18
== END 2021-08-08 18:39 | disposition home or self-care (01) ==
LOC: EC 14:53
DX: R10.11 Right upper quadrant pain (principal); R10.13 Epigastric pain; R11.2 Nausea with vomiting, unspecified; Z87.891 Personal history of nicotine dependence; Z79.899 Other long term (current) drug therapy
CPT/HCPCS: 36415; 80053; 82150; 83690; 85025; 85610; 85730; 81003; 81025; 76705; 99284; 96374; 96375 ×3; 96361; J1200; J2405; J2270

== ENCOUNTER 2023-01-22 12:07 | Emergency (ER) | payer OTHER ==
[2023-01-22] MEDS ORDERED: ONDANSETRON 4 MG/2 ML VIAL IVP STA (13:45)
[2023-01-22] MEDS ORDERED: SODIUM CHLORIDE 0.9% 2,000 ML IV STA (13:45)
[2023-01-22] MEDS ORDERED: diphenhydrAMINE 50 MG/ML 1 ML VIAL IVP STA (13:46)
[2023-01-22] MEDS ORDERED: PYRIDOXINE 100 MG/ML 1 ML VIAL IVP ONE (14:00)
--- NOTE | 2023-01-22 15:04 | ED ---
Nausea/Vomiting/Diarrhea HPI - General Chief complaint: Nausea/Vomiting/Diarrhea Stated complaint: 10 wks , Nausea Time Seen by Provider: 01/22/23 13:45 Source: patient, RN notes reviewed Mode of arrival: ambulatory Limitations: no limitations - History of Present Illness Initial comments: This is a 27-year-old female who presents to the emergency department for nausea and vomiting in . Patient is 10 weeks and . States that over the last 1-2 days, she has been unable to keep anything down. She is patient of Dr. Newberry, [facility]. A prescription for Reglan had been provided a few days ago. She's been taking this as prescribed, however it is no longer effective. She also has a prescription for Zofran, but has not taken this. She did not have this problem in her first . Denies any abdominal pain, vaginal bleeding, or discharge. Also denies any sick contacts. Denies any fevers, chills, sore throat, cough, dyspnea, chest pain, palpitations, abdominal pain, diarrhea, back pain, or headaches. MD complaint: nausea, vomiting - Related Data Home Medications Medication Instructions Recorded Confirmed Ondansetron Odt [Zofran Odt] 8 mg PO Q8H PRN 08/08/21 08/08/21 SUMAtriptan succinate [Imitrex] 50 mg PO BID PRN 08/08/21 08/08/21 Topiramate [Trokendi Xr] 50 mg PO DAILY 08/08/21 08/08/21 Previous Rx's Medication Instructions Recorded Famotidine [Pepcid] 20 mg PO DAILY 14 Days #14 tablet 08/08/21 Mag Hydrox/Al Hydrox/Simeth 30 ml PO BID PRN #500 ml 08/08/21 [Maalox] Doxylamine Succinate/Vit B6 1 each PO TID PRN #30 tab 01/22/23 [Doxylamine-Pyridoxine 10-10 mg] Allergies Allergy/AdvReac Type Severity Reaction Status Date / Time No Known Allergies Allergy Verified 01/22/23 12:32 Review of Systems ROS Statement: Those systems with pertinent positive or pertinent negative responses have been documented in the HPI. ROS Other: All systems not noted in ROS Statement are negative. Past Medical History Past Medical History: No Reported History Additional Past Medical History / Comment(s): migraines History of Any Multi-Drug Resistant Organisms: None Reported Past Surgical History: Appendectomy Past Anesthesia/Blood Transfusion Reactions: No Reported Reaction Past Psychological History: No Psychological Hx Reported Smoking Status: Former smoker, Vaper Past Alcohol Use History: Occasional Past Drug Use History: None Reported - Past Family History Father Family Medical History: Hyperlipidemia, Hypertension General Exam Limitations: no limitations General appearance: alert, in no apparent distress Head exam: Present: atraumatic, normocephalic, normal inspection Respiratory exam: Present: normal lung sounds bilaterally. Absent: respiratory distress, wheezes, rales, rhonchi, stridor Cardiovascular Exam: Present: regular rate, normal rhythm, normal heart sounds. Absent: systolic murmur, diastolic murmur, rubs, gallop, clicks Neurological exam: Present: alert, oriented X3, CN II-XII intact Psychiatric exam: Present: normal affect, normal mood Skin exam: Present: warm, dry, intact, normal color. Absent: rash Course Vital Signs 01/22/23 01/22/23 12:29 15:31 Temperature 98.1 F 98.4 F Pulse Rate 129 H 78 Respiratory 16 18 Rate Blood Pressure 114/70 112/73 O2 Sat by Pulse 100 100 Oximetry Medical Decision Making - Medical Decision Making This is a 27-year-old female who presents to the emergency department for nausea and vomiting in . Was pt. sent in by a medical professional or institution? @ -No Did you speak to anyone other than the patient for history? @ -No Did you review nursing and triage notes? @ -Yes, and I agree, it is accurate with regards to the patient's symptoms. Were old charts reviewed? @ -No Differential Diagnosis? @ -Differential Nausea and Vomiting: Gastroenteritis, cholecystitis, appendicitis, pancreatitis, migraine, benign positional vertigo, food borne illness, pyelonephritis, irritable bowel syndrome, influenza, Covid, GERD, incarcerated hernia, intestinal obstruction, this is not meant to be an all-inclusive list. EKG interpreted by me (3pts min.)? @ -Not obtained X-rays interpreted by me (1pt min.)? @ -Not obtained CT interpreted by me (1pt min.)? @ -Not obtained U/S interpreted by me (1pt. min.)? @ -Not obtained What testing was considered but not performed? (CT, X-rays, U/S, labs)? Why? @ -None What meds were considered but not given? Why? @ -None Did you discuss the management of the patient with other professionals? @ -No Did you reconcile home meds? @ -No Was smoking cessation discussed for >3mins.? @ -No Was critical care preformed (if so, how long)? @ -No Were there social determinants of health that impacted care today? How? (Ralph elessness, low income, unemployed, alcoholism, drug addiction, transportation, low edu. Level, literacy, decrease access to med. care, shelter, rehab)? @ -No Was there de-escalation of care discussed even if they declined? (Discuss DNR or withdrawal of care, Hospice)? @ -No What co-morbidities impacted this encounter? (DM, HTN, Smoking, COPD, CAD, Cancer, CVA, Hep., AIDS, mental health diagnosis, sleep apnea, morbid obesity)? @ - Was patient admitted / discharged? @ -Discharged. Lab work obtained revealing minor leukocytosis, which is likely reactive. Urinalysis consistent with contamination. Patient given 2 L bolus of IV fluids, Zofran, vitamin B6, and Benadryl, with significant relief in symptoms. She was able to drink water without difficulties. She already has a prescription for both Reglan and Zofran. Advised she try taking the Zofran in stead to see if that is more effective for her. I did send in a prescription for Diclegis, as another option to try. Dosing instructions were reviewed and I advised that if her insurance does not cover this, she can use [id number] vitamin B6 and Unisom. Advised she slowly advance her diet as tolerated and remain well-hydrated. She'll otherwise follow up with her [facility]. Undiagnosed new problem with uncertain prognosis? @ -None Drug Therapy requiring intensive monitoring for toxicity (Heparin, Nitro, Insulin, Cardizem)? @ -None Were any procedures done? @ -None Diagnosis/symptom? @ -Nausea and vomiting in Acute, or Chronic, or Acute on Chronic? @ -Acute Uncomplicated (without systemic symptoms) or Complicated (systemic symptoms)? @ -Uncomplicated Side effects of treatment? @ -None Exacerbation, Progression, or Severe Exacerbation] @ -Not applicable Poses a threat to life or bodily function? @ -No Return precautions reviewed in depth, the patient is instructed to return to the emergency department with any new, worsening, or concerning symptoms. Patient verbalized understanding. This case was discussed in detail with the attending ED physician, Dr. Marie. Presentation, findings, and treatment plan discussed in detail as well. - Lab Data Result diagrams: 01/22/23 15:00 01/22/23 15:00 Lab Results 01/22/23 01/22/23 01/22/23 Range/Units 15:00 15:00 15:00 WBC 12.4 H (3.8-10.6) k/uL RBC 4.36 (3.80-5.40) m/uL Hgb 13.7 (11.4-16.0) gm/dL Hct 39.5 (34.0-46.0) % MCV 90.6 (80.0-100.0) fL MCH 31.5 (25.0-35.0) pg MCHC 34.7 (31.0-37.0) g/dL RDW 11.4 L (11.5-15.5) % Plt Count 249 (150-450) k/uL MPV 8.7 Neutrophils % 81 % Lymphocytes % 14 % Monocytes % 3 % Eosinophils % 1 % Basophils % 0 % Neutrophils # 10.0 H (1.3-7.7) k/uL Lymphocytes # 1.7 (1.0-4.8) k/uL Monocytes # 0.4 (0-1.0) k/uL Eosinophils # 0.2 (0-0.7) k/uL Basophils # 0.0 (0-0.2) k/uL Sodium 136 L (137-145) mmol/L Potassium 3.9 (3.5-5.1) mmol/L Chloride 105 (98-107) mmol/L Carbon Dioxide 17 L (22-30) mmol/L Anion Gap 14 mmol/L BUN 7 (7-17) mg/dL Creatinine 0.53 (0.52-1.04) mg/dL Est GFR (CKD-EPI)AfAm >90 (>60 ml/min/1.73 sqM) Est GFR (CKD-EPI)NonAf >90 (>60 ml/min/1.73 sqM) Glucose 84 (74-99) mg/dL Calcium 9.9 (8.4-10.2) mg/dL Total Bilirubin 1.1 (0.2-1.3) mg/dL AST 23 (14-36) U/L ALT 17 (4-34) U/L Alkaline Phosphatase 60 (38-126) U/L Total Protein 8.3 H (6.3-8.2) g/dL Albumin 4.7 (3.5-5.0) g/dL Urine Color Yellow Urine Appearance Cloudy H (Clear) Urine pH 6.5 (5.0-8.0) Ur Specific [place] 1.024 (1.001-1.035) Urine Protein Trace H (Negative) Urine Glucose (UA) Negative (Negative) Urine Ketones 4+ H (Negative) Urine Blood Negative (Negative) Urine Nitrite Negative (Negative) Urine Bilirubin Negative (Negative) Urine Urobilinogen <2.0 (<2.0) mg/dL Ur Leukocyte Esterase Moderate H (Negative) Urine RBC <1 (0-5) /hpf Urine WBC 4 (0-5) /hpf Ur Squamous Epith Cells 14 H (0-4) /hpf Urine Bacteria Rare H (None) /hpf Urine Mucus Few H (None) /hpf Disposition Clinical Impression: Nausea and vomiting during Disposition: HOME SELF-CARE Instructions (If sedation given, give patient instructions): Nausea and Vomiting in (ED) Additional Instructions: Return to the emergency department with any new, worsening, or concerning symptoms. You can take the doxylamine pyridoxine up to 3 times daily as needed for nausea and vomiting. Start with 2 tablets at night, if symptoms persist after 2 days, increase dosage to 1 tablet every morning and 2 tablets at night. You may further increase the dose if needed to 1 tablet in the morning, 1 tablet in the mid-afternoon, and 2 tablets at night, with a maximum of 4 tablets each day. Take this on an empty stomach. If it is too expensive at the pharmacy, you can purchases [id number] vitamin B6 and Unisom for the same effect. You can also alternate with the Zofran and Reglan that you have prescriptions for. Slowly advance your diet as tolerated and remain well-hydrated. Follow up with your [facility] for reevaluation of symptoms. Prescriptions: Doxylamine Succinate/Vit B6 [Doxylamine-Pyridoxine 10-10 mg] 1 each PO TID PRN #30 tab PRN Reason: Nausea And Vomiting Is patient prescribed a controlled substance at d/c from ED?: No Referrals: Nonstaff,Physician [REFERRING] - 1-2 days
[2023-01-22 15:10] LABS: Basophils % (A) 0 %; Eosinophils # (A) 0.2 k/uL (0-0.7); Eosinophils % (A) 1 %; HCT 39.5 % (34.0-46.0); HGB 13.7 gm/dL (11.4-16.0); Lymphocytes # (A) 1.7 k/uL (1.0-4.8); Lymphocytes % (A) 14 %; MCH 31.5 pg (25.0-35.0); MCHC 34.7 g/dL (31.0-37.0); MCV 90.6 fL (80.0-100.0); Mean Platelet Volume 8.7; Monocytes # (A) 0.4 k/uL (0-1.0); Monocytes % (A) 3 %; Neutrophils % (A) 81 %; Platelet Count 249 k/uL (150-450); RBC 4.36 m/uL (3.80-5.40); RDW 11.4 % (11.5-15.5); WBC 12.4 k/uL (3.8-10.6)
[2023-01-22 15:15] LABS: Appearance,Urine Cloudy (Clear); Bacteria,Urine Rare /hpf; Bilirubin,Urine Negative (Negative); Blood,Urine Negative (Negative); Color,Urine Yellow; Glucose,Urine (UA) Negative (Negative); Ketones,Urine 4+ (Negative); Leukocyte Esterase,Urine Moderate (Negative); Mucus,Urine Few /hpf; Nitrite,Urine Negative (Negative); PH, Urine 6.5 (5.0-8.0); Protein,Urine Trace (Negative); RBC,Urine <1 /hpf (0-5); Specific Gravity,Urine 1.024 (1.001-1.035); Squamous Epithelial Cell,Urine 14 /hpf (0-4); Urobilinogen,Urine <2.0 mg/dL (<2.0); WBC,Urine 4 /hpf (0-5)
[2023-01-22 15:41] LABS: ALT 17 U/L (4-34); AST 23 U/L (14-36); African American GFR (CKD) >90 (>60 ml/min/1.73 sqM); Albumin 4.7 g/dL (3.5-5.0); Alkaline Phosphatase 60 U/L (38-126); Anion Gap 14 mmol/L; Blood Urea Nitrogen 7 mg/dL (7-17); Calcium 9.9 mg/dL (8.4-10.2); Carbon Dioxide 17 mmol/L (22-30); Chloride 105 mmol/L (98-107); Glucose 84 mg/dL (74-99); Non-African American GFR(CKD) >90 (>60 ml/min/1.73 sqM); Potassium 3.9 mmol/L (3.5-5.1); Sodium 136 mmol/L (137-145); Total Bilirubin 1.1 mg/dL (0.2-1.3); Total Protein 8.3 g/dL (6.3-8.2)
[2023-01-22 16:06] VITALS: BP 112/73; PULSE 78; RESP 18; TEMP 98.4
== END 2023-01-22 16:37 | disposition home or self-care (01) ==
LOC: EC 12:07
DX: O21.9 Vomiting of pregnancy, unspecified (principal); O99.331 Smoking (tobacco) complicating pregnancy, first trimester; F17.290 Nicotine dependence, other tobacco product, uncomplicated; Z3A.10 10 weeks gestation of pregnancy
CPT/HCPCS: 36415; 80053; 85025; 81001; 84702; 99284; 96374; 96375 ×2; 96361; J1200; J3415; J2405

== ENCOUNTER 2023-01-28 08:11 | Emergency (ER) | payer OTHER ==
[2023-01-28 08:17] VITALS: BP 128/82; PULSE 84; RESP 18; TEMP 98
[2023-01-28] MEDS ORDERED: SODIUM CHLORIDE 0.9% 1,000 ML IV STA (08:30)
[2023-01-28 08:52] LABS: Basophils % (A) 0 %; Eosinophils # (A) 0.1 k/uL (0-0.7); Eosinophils % (A) 1 %; HGB 13.2 gm/dL (11.4-16.0); Lymphocytes # (A) 1.1 k/uL (1.0-4.8); Lymphocytes % (A) 11 %; MCH 31.2 pg (25.0-35.0); MCHC 34.8 g/dL (31.0-37.0); MCV 89.9 fL (80.0-100.0); Mean Platelet Volume 8.5; Monocytes # (A) 0.4 k/uL (0-1.0); Monocytes % (A) 4 %; Neutrophils # (A) 8.9 k/uL (1.3-7.7); Neutrophils % (A) 83 %; Platelet Count 213 k/uL (150-450); RBC 4.23 m/uL (3.80-5.40); RDW 11.5 % (11.5-15.5); WBC 10.6 k/uL (3.8-10.6)
[2023-01-28 09:06] LABS: ALT 16 U/L (4-34); AST 20 U/L (14-36); African American GFR (CKD) >90 (>60 ml/min/1.73 sqM); Albumin 4.6 g/dL (3.5-5.0); Alkaline Phosphatase 49 U/L (38-126); Anion Gap 12 mmol/L; Blood Urea Nitrogen 8 mg/dL (7-17); Calcium 9.4 mg/dL (8.4-10.2); Carbon Dioxide 21 mmol/L (22-30); Chloride 101 mmol/L (98-107); Glucose 91 mg/dL (74-99); Non-African American GFR(CKD) >90 (>60 ml/min/1.73 sqM); Potassium 3.8 mmol/L (3.5-5.1); Sodium 134 mmol/L (137-145); Total Bilirubin 0.9 mg/dL (0.2-1.3); Total Protein 7.7 g/dL (6.3-8.2)
--- NOTE | 2023-01-28 09:35 | ED ---
Arrhythmia/Palpitations HPI - General Chief Complaint: Arrhythmia/Palpitations Stated Complaint: 10 weeks preg, dizziness Time Seen by Provider: 01/28/23 08:19 Source: patient, RN notes reviewed Mode of arrival: ambulatory Limitations: no limitations - History of Present Illness Initial Comments: This a 27-year-old female presents emergency Department chief complaint of near syncope. Patient was seen here recently for dehydration associated . She still continues to have intermittent nausea and vomiting. She states that she became very hot flushed feeling states that she had some tunnel vision. Diaphoretic at that time. Patient states that down and did improve. Blood pressure, glucose were within normal limits at her work. She does not that she feels better at this time so feels dehydrated. - Related Data Home Medications Medication Instructions Recorded Confirmed Ondansetron Odt [Zofran Odt] 8 mg PO Q8H PRN 08/08/21 08/08/21 SUMAtriptan succinate [Imitrex] 50 mg PO BID PRN 08/08/21 08/08/21 Topiramate [Trokendi Xr] 50 mg PO DAILY 08/08/21 08/08/21 Previous Rx's Medication Instructions Recorded Famotidine [Pepcid] 20 mg PO DAILY 14 Days #14 tablet 08/08/21 Mag Hydrox/Al Hydrox/Simeth 30 ml PO BID PRN #500 ml 08/08/21 [Maalox] Doxylamine Succinate/Vit B6 1 each PO TID PRN #30 tab 01/22/23 [Doxylamine-Pyridoxine 10-10 mg] Allergies Allergy/AdvReac Type Severity Reaction Status Date / Time No Known Allergies Allergy Verified 01/28/23 08:17 Review of Systems ROS Statement: Those systems with pertinent positive or pertinent negative responses have been documented in the HPI. ROS Other: All systems not noted in ROS Statement are negative. Past Medical History Past Medical History: No Reported History Additional Past Medical History / Comment(s): migraines History of Any Multi-Drug Resistant Organisms: None Reported Past Surgical History: Appendectomy Past Anesthesia/Blood Transfusion Reactions: No Reported Reaction Past Psychological History: No Psychological Hx Reported Smoking Status: Former smoker, Vaper Past Alcohol Use History: Occasional Past Drug Use History: None Reported - Past Family History Father Family Medical History: Hyperlipidemia, Hypertension General Exam Limitations: no limitations General appearance: alert, in no apparent distress Head exam: Present: atraumatic, normocephalic, normal inspection Eye exam: Present: normal appearance, PERRL, EOMI. Absent: scleral icterus, conjunctival injection, periorbital swelling ENT exam: Present: normal exam, normal oropharynx, mucous membranes moist Neck exam: Present: normal inspection, full ROM. Absent: tenderness, meningismus, lymphadenopathy Respiratory exam: Present: normal lung sounds bilaterally. Absent: respiratory distress, wheezes, rales, rhonchi, stridor Cardiovascular Exam: Present: regular rate, normal rhythm, normal heart sounds. Absent: systolic murmur, diastolic murmur, rubs, gallop, clicks Neurological exam: Present: alert, CN II-XII intact Course Vital Signs 01/28/23 08:14 Temperature 98 F Pulse Rate 84 Respiratory 18 Rate Blood Pressure 128/82 O2 Sat by Pulse 100 Oximetry EKG Findings - EKG Comments: EKG Findings:: EKG performed at 8:25 sinus rhythm with rate of 66 OH 147 QRS 100 QTC/QTC 390/403 - EKG Results: EKG: interpreted by JUVENAL Medical Decision Making - Medical Decision Making Was pt. sent in by a medical professional or institution (, PA, COUNTY PROGRAM TECHNICIAN, urgent care, hospital, or retirement...) When possible be specific @ -No Did you speak to anyone other than the patient for history (EMS, parent, family, police, friend...)? What history was obtained from this source @ -No Did you review nursing and triage notes (agree or disagree)? Why? @ -I reviewed and agree with nursing and triage notes Were old charts reviewed (outside hosp., previous admission, EMS record, old EKG, old radiological studies, urgent care reports/EKG's, retirement records)? Report findings @ -Reviewed prior laboratory studies and urinalysis from recent ER visit Differential Diagnosis (chest pain, altered mental status, abdominal pain women, abdominal pain men, vaginal bleeding, weakness, fever, dyspnea, syncope, headache, dizziness, GI bleed, back pain, seizure, CVA, palpatations, mental health, musculoskeletal)? @ -nDifferential Syncope: Valvular disease, hypertrophic cardiomyopathy, pulmonary embolism, tamponade, tachycardia, bradycardia, [place], hypovolemia, hemorrhage, dissection, anemia, intracranial hemorrhage, seizure, hypoglycemia, carbon monoxide poisoning, this is not meant to be an all-inclusive list.ble EKG interpreted by me (3pts min.). @ -As above X-rays interpreted by me (1pt min.). @ -None done CT interpreted by me (1pt min.). @ -None done U/S interpreted by me (1pt. min.). @ -Ultrasound shows normal live IUP heart rate 169 What testing was considered but not performed or refused? (CT, X-rays, U/S, labs)? Why? @ -None What meds were considered but not given or refused? Why? @ -None Did you discuss the management of the patient with other professionals (professionals i.e. Dr., PA, COUNTY PROGRAM TECHNICIAN, lab, RT, psych nurse, social work lecturer, warehouse receiving supervisor, teacher, targeting acquisition officer, pillowcase maker)? Give summary @ -No Was smoking cessation discussed for >3mins.? @ -No Was critical care preformed (if so, how long)? @ -No Were there social determinants of health that impacted care today? How? (Homelessness, low income, unemployed, alcoholism, drug addiction, transportation, low edu. Level, literacy, decrease access to med. care, intermediate, rehab)? @ -No Was there de-escalation of care discussed even if they declined (Discuss DNR or withdrawal of care, Hospice)? DNR status @ -No What co-morbidities impacted this encounter? (DM, HTN, Smoking, COPD, CAD, Cancer, CVA, ARF, Chemo, Hep., AIDS, mental health diagnosis, sleep apnea, morbid obesity)? @ -None Was patient admitted / discharged? Hospital course, mention meds given and route, prescriptions, significant lab abnormalities, going to OR and other perti nent info. @ -[Discharge present for near syncopal episode this related to dehydration patient had recent visit showing acute tone and her urinalysis she continues to her ketonuria patient was given 2 L of fluid feels greatly improved. Vitals are stable. Patient ultrasound is unremarkable.] Undiagnosed new problem with uncertain prognosis? @ -[No] Drug Therapy requiring intensive monitoring for toxicity (Heparin, Nitro, Insulin, Cardizem)? @ -[No] Were any procedures done? @ -[No] Diagnosis/symptom? @ -[Near syncope, dehydration, ] Acute, or Chronic, or Acute on Chronic? @ -[Acute] Uncomplicated (without systemic symptoms) or Complicated (systemic symptoms)? @ -[Complicated] Side effects of treatment? @ -[No] Exacerbation, Progression, or Severe Exacerbation? @ -[No] Poses a threat to life or bodily function? How? (Chest pain, [place], [place], pneumonia, PE, COPD, DKA, ARF, appy, cholecystitis, CVA, Diverticulitis, Homicidal, Suicidal, threat to staff... and all critical care pts) @ -[No] - Lab Data Result diagrams: 01/28/23 08:47 01/28/23 08:47 Lab Results 01/28/23 01/28/23 01/28/23 Range/Units 08:47 08:47 09:33 WBC 10.6 (3.8-10.6) k/uL RBC 4.23 (3.80-5.40) m/uL Hgb 13.2 (11.4-16.0) gm/dL Hct 38.0 (34.0-46.0) % MCV 89.9 (80.0-100.0) fL MCH 31.2 (25.0-35.0) pg MCHC 34.8 (31.0-37.0) g/dL RDW 11.5 (11.5-15.5) % Plt Count 213 (150-450) k/uL MPV 8.5 Neutrophils % 83 % Lymphocytes % 11 % Monocytes % 4 % Eosinophils % 1 % Basophils % 0 % Neutrophils # 8.9 H (1.3-7.7) k/uL Lymphocytes # 1.1 (1.0-4.8) k/uL Monocytes # 0.4 (0-1.0) k/uL Eosinophils # 0.1 (0-0.7) k/uL Basophils # 0.0 (0-0.2) k/uL Sodium 134 L (137-145) mmol/L Potassium 3.8 (3.5-5.1) mmol/L Chloride 101 (98-107) mmol/L Carbon Dioxide 21 L (22-30) mmol/L Anion Gap 12 mmol/L BUN 8 (7-17) mg/dL Creatinine 0.67 (0.52-1.04) mg/dL Est GFR (CKD-EPI)AfAm >90 (>60 ml/min/1.73 sqM) Est GFR (CKD-EPI)NonAf >90 (>60 ml/min/1.73 sqM) Glucose 91 (74-99) mg/dL Calcium 9.4 (8.4-10.2) mg/dL Magnesium 2.0 (1.6-2.3) mg/dL Total Bilirubin 0.9 (0.2-1.3) mg/dL AST 20 (14-36) U/L ALT 16 (4-34) U/L Alkaline Phosphatase 49 (38-126) U/L Total Protein 7.7 (6.3-8.2) g/dL Albumin 4.6 (3.5-5.0) g/dL Urine Color Light Red Urine Appearance Cloudy H (Clear) Urine pH 7.0 (5.0-8.0) Ur Specific [place] 1.017 (1.001-1.035) Urine Protein 2+ H (Negative) Urine Glucose (UA) Negative (Negative) Urine Ketones 3+ H (Negative) Urine Blood Negative (Negative) Urine Nitrite Negative (Negative) Urine Bilirubin Negative (Negative) Urine Urobilinogen <2.0 (<2.0) mg/dL Ur Leukocyte Esterase Large H (Negative) Urine WBC 11 H (0-5) /hpf Ur Squamous Epith Cells 7 H (0-4) /hpf Urine Bacteria Rare H (None) /hpf Urine Mucus Many H (None) /hpf Disposition Clinical Impression: Dehydration, , Near syncope Disposition: HOME SELF-CARE Condition: Stable Instructions (If sedation given, give patient instructions): Near Syncope (ED) Additional Instructions: Please return to the Emergency Department if symptoms worsen or any other concerns. Is patient prescribed a controlled substance at d/c from ED?: No Referrals: Chari Flor MD [Primary Care Provider] - 1-2 days Time of Disposition: 11:08
[2023-01-28 09:50] LABS: Appearance,Urine Cloudy (Clear); Bacteria,Urine Rare /hpf; Bilirubin,Urine Negative (Negative); Blood,Urine Negative (Negative); Color,Urine Light Red; Glucose,Urine (UA) Negative (Negative); Ketones,Urine 3+ (Negative); Leukocyte Esterase,Urine Large (Negative); Mucus,Urine Many /hpf; Nitrite,Urine Negative (Negative); Protein,Urine 2+ (Negative); Specific Gravity,Urine 1.017 (1.001-1.035); Squamous Epithelial Cell,Urine 7 /hpf (0-4); Urobilinogen,Urine <2.0 mg/dL (<2.0); WBC,Urine 11 /hpf (0-5)
--- NOTE | 2023-01-28 10:56 | US ---
EXAMINATION TYPE: US OB limited DATE OF EXAM: 01/28/2023 COMPARISON: NONE CLINICAL INDICATION: Female, 27 years old with history of heart tones; dizziness EXAM PERFORMED: Transabdominal (TA) GESTATIONAL AGE / DATING Physician Established: (10 weeks/0 days) EDC: 08/26/23 Dates by Current Scan: No growth performed on today?s study per ordering physician SURVEY HEART RATE: 169 bpm RHYTHM: Normal Single live intrauterine gestation. IMPRESSION: Single live intrauterine gestation with heart rate detected.
== END 2023-01-28 11:30 | disposition home or self-care (01) ==
LOC: EC 08:11
DX: O99.281 Endocrine, nutritional and metabolic diseases complicating pregnancy, first trimester (principal); E86.0 Dehydration; R55 Syncope and collapse; O99.331 Smoking (tobacco) complicating pregnancy, first trimester; F17.290 Nicotine dependence, other tobacco product, uncomplicated; Z3A.10 10 weeks gestation of pregnancy
CPT/HCPCS: 36415; 76815; 80053; 81001; 83735; 85025; 85730; 93005; 96360; 99285

== ENCOUNTER → 2023-02-15 | Outpatient (CLI) | payer OTHER ==
--- NOTE | 2023-02-15 15:51 | US ---
EXAMINATION TYPE: Transabdominal DATE OF EXAM: 02/15/2023 3:21 PM COMPARISON: OB ultrasound 01/28/2023 CLINICAL INDICATION: Female, 27 years old with history of Z36.89 ENCOUNTER FOR OTHER SPECIFIED ANTENA VINCENZO SCR; early OB, no issues, EXAM PERFORMED: OBTA EXAM MEASUREMENTS: GESTATIONAL AGE / DATING Physician Established: (12 weeks/4 days) EDC: 08/26/2023 Dates by LMP: (12 weeks/4 days) EDC: 08/26/2023 Dates by First Scan: No previous this is first scan Dates by Current Scan for: (12 weeks/6 days) EDC: 08/26/2023 MATERNAL ANATOMY Uterus: 13.4 x 11.3 x 7.6cm Right Ovary: not seen Left Ovary: 2.6 x 1.7 x 2.0cm Post CDS / Adnexa: wnl Presence of free fluid: no Presence of corpus luteal cyst: not seen Presence of subchorionic bleed: no GESTATION / SURVEY CRL: 6.4cm (12 weeks/6 days) MSD: wnl Yolk Sac (normal less than 6mm): not seen Heart Rate: 147 bpm Rhythm: Normal IUP: Viable IUP Age Appropriate Anatomy Limbs: Visualized Calvarium: Visualized Date of LMP: 11/19/2022 Beta HcG (if available): not available Single live intrauterine gestation. IMPRESSION: Single live intrauterine gestation with estimated gestational age of 12 weeks 6 days and estimated du e date of 08/26/2023.
== END | disposition home or self-care (01) ==
LOC: RADUSWWP 14:58
PROVIDERS: ATTEND Obstetrics & Gynecology
DX: Z36.89 Encounter for other specified antenatal screening (principal); Z3A.12 12 weeks gestation of pregnancy
CPT/HCPCS: 76801

== ENCOUNTER 2023-02-20 07:10 | Emergency (ER) | payer OTHER ==
[2023-02-20 07:18] VITALS: TEMP 98
[2023-02-20] MEDS ORDERED: SODIUM CHLORIDE 0.9% 500 ML 500 ML IV ONE (07:42)
[2023-02-20] MEDS ORDERED: SODIUM CHLORIDE 0.9% 1,000 ML IV ONE (07:42)
--- NOTE | 2023-02-20 07:53 | ED ---
General Adult HPI - General Chief complaint: Syncope Stated complaint: Syncope, 14 weeks Time Seen by Provider: 02/20/23 07:30 Source: patient, RN notes reviewed, old records reviewed Mode of arrival: ambulatory Limitations: no limitations - History of Present Illness Initial comments: This is a 27-year-old female who is 14 weeks . Patient states at work she almost passed out she got really lightheaded and she sat down and the sympto ms eventually subsided. Patient states she has been quite nauseous and has vomited multiple times over the last few weeks but lately she hasn't been eating anything so she hasn't been able to vomit as he hasn't been eating lately. Patient also states she's had diarrhea. Patient denies any abdominal pain. Patient denies any chest pain difficulty breathing first breath per patient denies lightheadedness or dizziness currently. Patient denies dysuria hematuria or urinary frequency - Related Data Home Medications Medication Instructions Recorded Confirmed Ondansetron Odt [Zofran Odt] 8 mg PO Q8H PRN 08/08/21 08/08/21 SUMAtriptan succinate [Imitrex] 50 mg PO BID PRN 08/08/21 08/08/21 Topiramate [Trokendi Xr] 50 mg PO DAILY 08/08/21 08/08/21 Previous Rx's Medication Instructions Recorded Famotidine [Pepcid] 20 mg PO DAILY 14 Days #14 tablet 08/08/21 Mag Hydrox/Al Hydrox/Simeth 30 ml PO BID PRN #500 ml 08/08/21 [Maalox] Doxylamine Succinate/Vit B6 1 each PO TID PRN #30 tab 01/22/23 [Doxylamine-Pyridoxine 10-10 mg] Allergies Allergy/AdvReac Type Severity Reaction Status Date / Time No Known Allergies Allergy Verified 02/20/23 07:18 Review of Systems ROS Statement: Those systems with pertinent positive or pertinent negative responses have been documented in the HPI. ROS Other: All systems not noted in ROS Statement are negative. Past Medical History Past Medical History: No Reported History Additional Past Medical History / Comment(s): migraines History of Any Multi-Drug Resistant Organisms: None Reported Past Surgical History: Appendectomy Past Anesthesia/Blood Transfusion Reactions: No Reported Reaction Past Psychological History: No Psychological Hx Reported Smoking Status: Former smoker, Vaper Past Alcohol Use History: Occasional Past Drug Use History: None Reported - Past Family History Father Family Medical History: Hyperlipidemia, Hypertension General Exam - General Exam Comments Initial Comments: GENERAL: Patient is well-developed and well-nourished. Patient is nontoxic and well- hydrated and is in no acute distress. ENT: Neck is soft and supple. No significant lymphadenopathy is noted. Oropharynx is clear. Moist mucous membranes. Neck has full range of motion without eliciting any pain. EYES: The sclera were anicteric and conjunctiva were pink and moist. Extraocular movements were intact and pupils were equal round and reactive to light. Eyelids were unremarkable. PULMONARY: Unlabored respirations. Good breath sounds bilaterally. No audible rales rhonchi or wheezing was noted. CARDIOVASCULAR: There is a regular rate and rhythm without any murmurs gallops or rubs. ABDOMEN: Soft and nontender with normal bowel sounds. No palpable organomegaly was noted. There is no palpable pulsatile mass. SKIN: Skin is clear with no lesions or rashes and otherwise unremarkable. NEUROLOGIC: Patient is alert and oriented x3. Cranial nerves II through XII are grossly intact. Motor and sensory are also intact. Normal speech, volume and content. Symmetrical smile. MUSCULOSKELETAL: Normal extremities with adequate strength and full range of motion. No lower extremity swelling or edema. No calf tenderness. LYMPHATICS: No significant lymphadenopathy is noted PSYCHIATRIC: Normal psychiatric evaluation. Limitations: no limitations Course Vital Signs 02/20/23 02/20/23 07:16 07:47 Temperature 98 F Pulse Rate 118 H Respiratory 20 Rate Blood Pressure 110/75 Blood Pressure 117/74 [Left Arm Sitting] Blood Pressure 117/78 [Left Arm Standing] Blood Pressure 105/63 [Left Arm Supine] O2 Sat by Pulse 99 Oximetry Medical Decision Making - Medical Decision Making EKG as interpreted by myself. EKG shows a sinus rhythm at 93 bpm SD interval 252 QRS is 85 Q-T intervals 331 QTC is 381. EKG shows no ST segment elevation or depression Was pt. sent in by a medical professional or institution (, PA, CONFIGURATOR, urgent care, hospital, or fci...) When possible be specific @ -No Did you speak to anyone other than the patient for history (EMS, parent, family, police, friend...)? What history was obtained from this source @ -No Did you review nursing and triage notes (agree or disagree)? Why? @ -I reviewed and agree with nursing and triage notes Were old charts reviewed (outside hosp., previous admission, EMS record, old EKG, old radiological studies, urgent care reports/EKG's, fci records)? Report findings @ -Prior lab work from prior charts on this patient Differential Diagnosis (chest pain, altered mental status, abdominal pain women, abdominal pain men, vaginal bleeding, weakness, fever, dyspnea, syncope, headache, dizziness, GI bleed, back pain, seizure, CVA, palpatations, mental health, musculoskeletal)? @ -Differential Syncope: Valvular disease, hypertrophic cardiomyopathy, pulmonary embolism, tamponade, tachycardia, bradycardia, [place], hypovolemia, hemorrhage, dissection, anemia, intracranial hemorrhage, seizure, hypoglycemia, carbon monoxide poisoning, this is not meant to be an all-inclusive list. EKG interpreted by me (3pts min.). @ -As above X-rays interpreted by me (1pt min.). @ -None done CT interpreted by me (1pt min.). @ -None done U/S interpreted by me (1pt. min.). @ -None done What testing was considered but not performed or refused? (CT, X-rays, U/S, labs)? Why? @ -None What meds were considered but not given or refused? Why? @ -None Did you discuss the management of the patient with other professionals (pro fessionals i.e. , PA, CONFIGURATOR, lab, RT, psych nurse, social research assistant, mixing and molding machine operator, teacher, weapons electrical engineering officer, cyanide case hardener)? Give summary @ -No Was smoking cessation discussed for >3mins.? @ -No Was critical care preformed (if so, how long)? @ -No Were there social determinants of health that impacted care today? How? (Homelessness, low income, unemployed, alcoholism, drug addiction, transporta tion, low edu. Level, literacy, decrease access to med. care, retirement, rehab)? @ -No Was there de-escalation of care discussed even if they declined (Discuss DNR or withdrawal of care, Hospice)? DNR status @ -No What co-morbidities impacted this encounter? (DM, HTN, Smoking, COPD, CAD, Cancer, CVA, ARF, Chemo, Hep., AIDS, mental health diagnosis, sleep apnea, morbid obesity)? @ -None Was patient admitted / discharged? Hospital course, mention meds given and route, prescriptions, significant lab abnormalities, going to OR and other pertinent info. @ -Patient had a syncopal episode working she states she has been having much intake lately because she's been nauseous and she's also had diarrhea. Patient was given a liter of half normal saline and was feeling much better she also was a little bit low on potassium so she was given Ashley Dur in the emergency depar tment. Patient was up and ambulating without problem patient will be discharged home. Undiagnosed new problem with uncertain prognosis? @ -No Drug Therapy requiring intensive monitoring for toxicity (Heparin, Nitro, Insulin, Cardizem)? @ -No Were any procedures done? @ -No Diagnosis/symptom? @ -Near syncope Acute, or Chronic, or Acute on Chronic? @ -Acute Uncomplicated (without systemic symptoms) or Complicated (systemic symptoms)? @ -Complicated Side effects of treatment? @ -No Exacerbation, Progression, or Severe Exacerbation? @ -No Poses a threat to life or bodily function? How? (Chest pain, [place], [place], pneumonia, PE, COPD, DKA, ARF, appy, cholecystitis, CVA, Diverticulitis, Homicidal, Suicidal, threat to staff... and all critical care pts) @ -No Diagnosis/symptom? @ -Hypokalemia Acute, or Chronic, or Acute on Chronic? @ -Acute Uncomplicated (without systemic symptoms) or Complicated (systemic symptoms)? @ -Uncomplicated Side effects of treatment? @ -none Exacerbation, Progression, or Severe Exacerbation] @ -no Poses a threat to life or bodily function? @ -no - Lab Data Result diagrams: 02/20/23 07:55 02/20/23 07:55 Lab Results 02/20/23 02/20/23 Range/Units 07:55 07:55 WBC 9.1 (3.8-10.6) k/uL RBC 3.97 (3.80-5.40) m/uL Hgb 12.3 (11.4-16.0) gm/dL Hct 36.0 (34.0-46.0) % MCV 90.6 (80.0-100.0) fL MCH 31.0 (25.0-35.0) pg MCHC 34.3 (31.0-37.0) g/dL RDW 11.9 (11.5-15.5) % Plt Count 239 (150-450) k/uL MPV 8.6 Neutrophils % 79 % Lymphocytes % 14 % Monocytes % 4 % Eosinophils % 2 % Basophils % 0 % Neutrophils # 7.2 (1.3-7.7) k/uL Lymphocytes # 1.2 (1.0-4.8) k/uL Monocytes # 0.4 (0-1.0) k/uL Eosinophils # 0.2 (0-0.7) k/uL Basophils # 0.0 (0-0.2) k/uL Sodium 134 L (137-145) mmol/L Potassium 3.3 L (3.5-5.1) mmol/L Chloride 105 (98-107) mmol/L Carbon Dioxide 20 L (22-30) mmol/L Anion Gap 9 mmol/L BUN 7 (7-17) mg/dL Creatinine 0.63 (0.52-1.04) mg/dL Est GFR (CKD-EPI)AfAm >90 (>60 ml/min/1.73 sqM) Est GFR (CKD-EPI)NonAf >90 (>60 ml/min/1.73 sqM) Glucose 66 L (74-99) mg/dL Calcium 9.0 (8.4-10.2) mg/dL Total Bilirubin 0.7 (0.2-1.3) mg/dL AST 19 (14-36) U/L ALT 15 (4-34) U/L Alkaline Phosphatase 41 (38-126) U/L Total Protein 7.2 (6.3-8.2) g/dL Albumin 4.3 (3.5-5.0) g/dL Disposition Clinical Impression: Near syncope Disposition: HOME SELF-CARE Condition: Good Instructions (If sedation given, give patient instructions): Near Syncope (ED), Hypotension (ED) Is patient prescribed a controlled substance at d/c from ED?: No Referrals: Chari Flor MD [Primary Care Provider] - 1-2 days Time of Disposition: 09:18
[2023-02-20 08:06] LABS: Basophils % (A) 0 %; Eosinophils # (A) 0.2 k/uL (0-0.7); Eosinophils % (A) 2 %; HGB 12.3 gm/dL (11.4-16.0); Lymphocytes # (A) 1.2 k/uL (1.0-4.8); Lymphocytes % (A) 14 %; MCHC 34.3 g/dL (31.0-37.0); MCV 90.6 fL (80.0-100.0); Mean Platelet Volume 8.6; Monocytes # (A) 0.4 k/uL (0-1.0); Monocytes % (A) 4 %; Neutrophils # (A) 7.2 k/uL (1.3-7.7); Neutrophils % (A) 79 %; Platelet Count 239 k/uL (150-450); RBC 3.97 m/uL (3.80-5.40); RDW 11.9 % (11.5-15.5); WBC 9.1 k/uL (3.8-10.6)
[2023-02-20 08:23] LABS: ALT 15 U/L (4-34); AST 19 U/L (14-36); African American GFR (CKD) >90 (>60 ml/min/1.73 sqM); Albumin 4.3 g/dL (3.5-5.0); Alkaline Phosphatase 41 U/L (38-126); Anion Gap 9 mmol/L; Blood Urea Nitrogen 7 mg/dL (7-17); Carbon Dioxide 20 mmol/L (22-30); Chloride 105 mmol/L (98-107); Glucose 66 mg/dL (74-99); Non-African American GFR(CKD) >90 (>60 ml/min/1.73 sqM); Potassium 3.3 mmol/L (3.5-5.1); Sodium 134 mmol/L (137-145); Total Bilirubin 0.7 mg/dL (0.2-1.3); Total Protein 7.2 g/dL (6.3-8.2)
[2023-02-20] MEDS ORDERED: POTASSIUM CHLORIDE ER 20 MEQ TAB.ER PO STA (08:53)
[2023-02-20 09:53] VITALS: BP 128/70; PULSE 82; RESP 18
== END 2023-02-20 09:54 | disposition home or self-care (01) ==
LOC: EC 07:10
DX: O26.892 Other specified pregnancy related conditions, second trimester (principal); R55 Syncope and collapse; Z87.891 Personal history of nicotine dependence; Z3A.14 14 weeks gestation of pregnancy
CPT/HCPCS: 36415; 80053; 85025; 93005; 96360; 96361; 99284

== ENCOUNTER 2023-06-18 09:57 | Outpatient (CLI) | payer OTHER ==
[2023-06-18] MEDS ORDERED: ONDANSETRON 4 MG/2 ML VIAL IVP STA (10:40)
[2023-06-18] MEDS ORDERED: ACETAMINOPHEN IV (For NPO) 1,000 MG in EMPTY BAG 1 BAG IVPB STA (10:40)
[2023-06-18] MEDS ORDERED: LACTATED RINGERS 1,000 ML IV SCH (10:45)
[2023-06-18 11:13] LABS: Basophils % (A) 0 %; Eosinophils # (A) 0.1 k/uL (0-0.7); Eosinophils % (A) 1 %; HCT 37.6 % (34.0-46.0); HGB 12.6 gm/dL (11.4-16.0); Lymphocytes # (A) 0.3 k/uL (1.0-4.8); Lymphocytes % (A) 3 %; MCH 30.4 pg (25.0-35.0); MCHC 33.4 g/dL (31.0-37.0); MCV 91.1 fL (80.0-100.0); Mean Platelet Volume 8.5; Monocytes # (A) 0.4 k/uL (0-1.0); Monocytes % (A) 4 %; Neutrophils # (A) 8.7 k/uL (1.3-7.7); Neutrophils % (A) 91 %; Platelet Count 178 k/uL (150-450); RBC 4.13 m/uL (3.80-5.40); WBC 9.6 k/uL (3.8-10.6)
[2023-06-18 12:11] LABS: Appearance,Urine Clear (Clear); Bilirubin,Urine Negative (Negative); Blood,Urine Negative (Negative); Color,Urine Yellow; Glucose,Urine (UA) Negative (Negative); Ketones,Urine 4+ (Negative); Leukocyte Esterase,Urine Negative (Negative); Mucus,Urine Many /hpf; Nitrite,Urine Negative (Negative); Protein,Urine 1+ (Negative); RBC,Urine <1 /hpf (0-5); Squamous Epithelial Cell,Urine 1 /hpf (0-4); Urobilinogen,Urine <2.0 mg/dL (<2.0); WBC,Urine 3 /hpf (0-5)
--- NOTE | 2023-06-18 13:03 | P.MSEPDOC ---
Presenting Problems - Arrival Data Date of Arrival on Unit: 06/18/23 Time of Arrival on Unit: 09:57 Mode of Transport: Ambulatory I agree with the RN Medical Screening Exam: Yes Case reviewed; plan agreed upon as documented in EMR&OBIX.: Yes Diagnosis: INFLUENZA DUE TO IDENT NOVEL INFLUENZA A VIRUS W GI MANIFEST (Patient is a pleasant 28-year-old 2 para 0 female estimated gestational age 30 weeks who presents to labor and delivery with low-grade temperature persistent nausea vomiting anything down and other symptomatology consistent with influenza. Patient is tested is positive for influenza A. I did give her a liter of IV hydration and some Zofran. I discussed her diagnosis and she is comfortable going home on Tamiflu and oral Zofran. 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
[2023-06-18 13:35] VITALS: BP 125/76; PULSE 137; RESP 18; TEMP 97.9
== END 2023-06-18 13:00 | disposition home or self-care (01) ==
LOC: FBPOP 09:57
PROVIDERS: ATTEND Obstetrics & Gynecology
DX: O98.513 Other viral diseases complicating pregnancy, third trimester (principal); O21.9 Vomiting of pregnancy, unspecified; J09.X3 Influenza due to identified novel influenza A virus with gastrointestinal manifestations; Z3A.30 30 weeks gestation of pregnancy
CPT/HCPCS: 59025; 96361; 96365; 96375; 36415; 85025; 81001; 87636; G0463; J2405; J0131; 99214

== ENCOUNTER 2023-06-19 09:45 | Observation (INO) | payer OTHER ==
[2023-06-19] MEDS ORDERED: LACTATED RINGERS 1,000 ML IV ONE (09:52)
[2023-06-19] MEDS ORDERED: ONDANSETRON 4 MG/2 ML VIAL IVP PRN (10:47)
[2023-06-19] MEDS: ACETAMINOPHEN TAB 325 MG TAB PO PRN ×4 (10:54→23:46)
--- NOTE | 2023-06-19 11:08 | P.HPOB ---
History of Present Illness H&P Date: 06/19/23 Chief Complaint: Influenza A, persistent N/V/dehydration This patient is a pleasant 28 yr female EDC 08/26/2023 estimated gestational age 30wk2d who presented to triage yesterday with 2 days of malaise, N/V, low grade fever. Testing was positive for Influenza A. She was given Tamiflu, IV hydration and oral anti-emetics however contacted me this morning stating she is still unable to keep fluids down and in general ill feeling. I advised admission for IV hydration, anti-emetics and fever control. care is by Dr. Newberry and appears to have been complicated by hyperemesis and dizziness. 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 Review of Systems Constitutional: Reports as per HPI, Reports fever, Reports poor appetite Respiratory: Reports as per HPI Gastrointestinal: Reports as per HPI Genitourinary: Reports Menstruation: Reports amenorrhea Past Medical History Past Medical History: No Reported History Additional Past Medical History / Comment(s): migraines History of Any Multi-Drug Resistant Organisms: None Reported Past Surgical History: Appendectomy Past Anesthesia/Blood Transfusion Reactions: No Reported Reaction Past Psychological History: No Psychological Hx Reported Smoking Status: Former smoker Past Alcohol Use History: Occasional Past Drug Use History: Marijuana - Past Family History Father Family Medical History: Hyperlipidemia, Hypertension Medications and Allergies Home Medications Medication Instructions Recorded Confirmed Type Ondansetron Odt [Zofran Odt] 8 mg PO Q8H PRN 08/08/21 06/19/23 History Aspirin [Children's Aspirin] 81 mg PO DAILY 06/18/23 06/19/23 History Ondansetron [Zofran] 4 mg PO Q8HR PRN #30 tab 06/18/23 06/19/23 Rx Oseltamivir [Tamiflu] 75 mg PO Q12HR 5 Days #10 cap 06/18/23 06/19/23 Rx Vit No.179/Iron/Folic 1 tab PO DAILY 06/18/23 06/19/23 History [ Tablet] Allergies Allergy/AdvReac Type Severity Reaction Status Date / Time No Known Allergies Allergy Verified 06/19/23 10:10 Exam Vital Signs Temp Pulse Resp BP Pulse Ox 06/19/23 09:47 99.4 F 128 H 18 130/91 100 Intake and Output 06/18/23 06/19/23 06/19/23 22:59 06:59 14:59 Other: Weight 74.843 kg Results labs: O positive, Rubella Immune, RPR-HIV-Hep B/C negative Assessment and Plan Assessment: This is a pleasant 28 yr female 30 weeks EGA with Influenza A and dehydration (persistent). Plan is admission with IV hydration, anti-emetics, and anti-pyretics. Will check a repeat CBC and metabolic panel. FHTs are Cat I and will do NST q shift. (1) 30 weeks gestation of Current Visit: Yes Status: Acute Code(s): Z3A.30 - 30 WEEKS GESTATION OF SNOMED Code(s): 97573738 (2) Dehydration Current Visit: Yes Status: Acute Code(s): E86.0 - DEHYDRATION SNOMED Code (s): 70996889
[2023-06-19] MEDS: LACTATED RINGERS 1,000 ML IV SCH ×2 (11:32→20:16)
[2023-06-19 13:00] LABS: Basophils % (A) 0 %; Eosinophils % (A) 0 %; HCT 33.9 % (34.0-46.0); HGB 11.2 gm/dL (11.4-16.0); Lymphocytes # (A) 0.4 k/uL (1.0-4.8); Lymphocytes % (A) 4 %; MCH 30.7 pg (25.0-35.0); MCHC 33.1 g/dL (31.0-37.0); MCV 92.6 fL (80.0-100.0); Mean Platelet Volume 9.1; Monocytes # (A) 0.4 k/uL (0-1.0); Monocytes % (A) 4 %; Neutrophils % (A) 91 %; Platelet Count 170 k/uL (150-450); RBC 3.67 m/uL (3.80-5.40); RDW 11.8 % (11.5-15.5); WBC 9.9 k/uL (3.8-10.6)
[2023-06-19 13:13] LABS: ALT 13 U/L (4-34); AST 19 U/L (14-36); African American GFR (CKD) >90 (>60 ml/min/1.73 sqM); Albumin 2.7 g/dL (3.5-5.0); Alkaline Phosphatase 75 U/L (38-126); Anion Gap 9 mmol/L; Blood Urea Nitrogen 4 mg/dL (7-17); Carbon Dioxide 21 mmol/L (22-30); Chloride 105 mmol/L (98-107); Glucose 90 mg/dL (74-99); Non-African American GFR(CKD) >90 (>60 ml/min/1.73 sqM); Potassium 3.1 mmol/L (3.5-5.1); Sodium 135 mmol/L (137-145); Total Bilirubin 0.3 mg/dL (0.2-1.3); Total Protein 5.3 g/dL (6.3-8.2)
[2023-06-19 20:17] VITALS: RESP 16
[2023-06-20] MEDS: LACTATED RINGERS 1,000 ML IV SCH (04:00)
[2023-06-20 06:22] VITALS: BP 106/65; PULSE 86; TEMP 97.6
[2023-06-20] MEDS ORDERED: POTASSIUM CHLORIDE ER 20 MEQ TAB.ER PO STA (06:55)
--- NOTE | 2023-06-20 06:59 | P.PN ---
Progress Note - Text Progress Note Date: 06/20/23 Hospital day #2. Patient is 30-3/7 weeks gestation who is admitted for known influenza A with persistent nausea vomiting and dehydration is refractory to outpatient management. Patient is admitted given IV bolus and IV fluids. CBC was normal. Chem panel did show a mild depression of her potassium and therefore I gave her a dose of oral potassium. Patient did not have any significant nausea vomiting while she was here at the hospital after 24 hours is felt to be stable for discharge home follow up with Dr. Newberry this . She is to continue her Tamiflu, oral fluids, and she'll try to drink some electrolytes at home as well. Patient's felt be stable for discharge home to continue treatment as an outpatient
--- NOTE | 2023-06-20 07:05 | P.DS ---
Providers Date of admission: 06/19/23 09:45 Expected date of discharge: 06/20/23 Attending physician: Kendra Newberry Primary care physician: Stated None - Discharge Diagnosis(es) (1) 30 weeks gestation of Current Visit: Yes Status: Acute (2) Dehydration Current Visit: Yes Status: Acute Hospital Course: Please see dictated H&P on this patient's admission. In brief summary this is a pleasant 28-year-old 2 para 1 female 38 and half weeks gestation admitted with known influenza A, nausea vomiting and dehydration is refractory to outpatient management. Patient is admitted and given IV hydration continued Tamiflu, some potassium supplementation, and felt to be stable for discharge home follow up as an outpatient Dr. Newberry later this week. Patient Condition at Discharge: Fair Plan - Discharge Summary New Discharge Prescriptions: No Action Aspirin [Children's Aspirin] 81 mg PO DAILY Ondansetron [Zofran] 4 mg PO Q8HR PRN #30 tab PRN Reason: Nausea Ondansetron Odt [Zofran Odt] 8 mg PO Q8H PRN PRN Reason: Nausea Vit No.179/Iron/Folic [ Tablet] 1 tab PO DAILY Oseltamivir [Tamiflu] 75 mg PO Q12HR 5 Days #10 cap Discharge Medication List Ondansetron Odt [Zofran Odt] 8 mg PO Q8H PRN 08/08/21 [History] Aspirin [Children's Aspirin] 81 mg PO DAILY 06/18/23 [History] Ondansetron [Zofran] 4 mg PO Q8HR PRN #30 tab 06/18/23 [Rx] Oseltamivir [Tamiflu] 75 mg PO Q12HR 5 Days #10 cap 06/18/23 [Rx] Vit No.179/Iron/Folic [ Tablet] 1 tab PO DAILY 06/18/23 [History] Follow up Appointment(s)/Referral(s): Kendra Newberyr DO [Doctor of Osteopathic Medicine] - 06/24/23 (Please see Dr. Newberry on as scheduled.) Patient Instructions/Handouts: Influenza (DC), Dehydration (DC), Hypokalemia (ED) Activity/Diet/Wound Care/Special Instructions: Please continue to take the Tamiflu as directed. Continue oral hydration, Tylenol as needed for headaches or ill feeling, continue Zofran as needed for nausea vomiting. Discharge Disposition: HOME SELF-CARE
[2023-06-20] MEDS: ACETAMINOPHEN TAB 325 MG TAB PO PRN (08:09)
== END 2023-06-20 09:30 | disposition home or self-care (01) ==
LOC: 4FBP 09:45
PROVIDERS: ADMIT Obstetrics & Gynecology; ATTEND Obstetrics & Gynecology
DX: O98.513 Other viral diseases complicating pregnancy, third trimester (principal); J10.89 Influenza due to other identified influenza virus with other manifestations; Z3A.30 30 weeks gestation of pregnancy; O99.283 Endocrine, nutritional and metabolic diseases complicating pregnancy, third trimester; E86.0 Dehydration; O21.2 Late vomiting of pregnancy; O99.353 Diseases of the nervous system complicating pregnancy, third trimester; G43.909 Migraine, unspecified, not intractable, without status migrainosus; O99.343 Other mental disorders complicating pregnancy, third trimester; F32.A Depression, unspecified; Z79.82 Long term (current) use of aspirin; Z90.49 Acquired absence of other specified parts of digestive tract; Z87.891 Personal history of nicotine dependence; Z82.49 Family history of ischemic heart disease and other diseases of the circulatory system; Z83.49 Family history of other endocrine, nutritional and metabolic diseases
CPT/HCPCS: 96361; 96374; 80053; 85025; G0378 ×2; G0379; J2405

== ENCOUNTER → 2023-08-03 | Outpatient (CLI) | payer OTHER ==
--- NOTE | 2023-08-04 14:36 | US ---
EXAMINATION TYPE: US OB >= 14 wk fetus DATE OF EXAM: 08/03/2023 COMPARISON: None CLINICAL INDICATION: Female, 28 years old with history of O36.63X0 EXCESSIVE GROWTH TECHNIQUE: Transabdominal scanning GESTATIONAL AGE / DATING Physician Established: (36 weeks/5 days) EDC: 08/26/2023 Dates by LMP: (36 weeks/5 days) EDC: 08/26/2023 Dates by First Scan: (36 weeks/5 days) EDC: 08/26/2023 Dates by Current Scan: (34 weeks/6 days) (1 week 6 days less growth than expected compared to 02/16/20) EDC: 09/08/2023 SURVEY IUP: Single PLACENTA: Anterior PREVIA: No Previa HEMAL: 14 cm Normal CERVICAL LENGTH (transabdominal: norm > 3.0cm): 3.5 cm BIOMETRY PRESENTATION: Vertex LIE: Longitudinal BPD: 8.92 cm 36 weeks / 1 days HC: 32.70 cm 37 weeks / 1 days AC: 30.82 cm 34 weeks / 5 days FL: 6.54 cm 33 weeks / 5 days ESTIMATED WEIGHT IN GRAMS: 2532 grams ESTIMATED WEIGHT IN LBS/OZ: 5 lbs. 9 oz. WEIGHT PERCENTAGE BASED ON ESTABLISHED DATES: 12.4% HC/AC: 1.06 Normal FL/AC: 21.23 Normal HEART RATE: 136 bpm RHYTHM: Normal IMPRESSION: 1. Single live intrauterine with estimated gestational age of 36 weeks 5 days by LMP. Curre nt ultrasound biometry is smaller at 34 weeks 6 days (1 weeks 6 days less growth than expected in the interval). EFW at 12.4%. Follow-up as clinically indicated. 2. Note that this is not an assessment of anatomy.
== END | disposition home or self-care (01) ==
LOC: RADUSWWP 15:30
PROVIDERS: ATTEND Obstetrics & Gynecology
DX: O36.63X0 Maternal care for excessive fetal growth, third trimester, not applicable or unspecified (principal); Z3A.37 37 weeks gestation of pregnancy
CPT/HCPCS: 76805

== ENCOUNTER 2023-08-10 13:59 | Inpatient (IN) | payer OTHER ==
[2023-08-10 14:43] LABS: Appearance,Urine Clear (Clear); Bilirubin,Urine Negative (Negative); Blood,Urine Negative (Negative); Color,Urine Colorless; Glucose,Urine (UA) Negative (Negative); Ketones,Urine Negative (Negative); Leukocyte Esterase,Urine Negative (Negative); Nitrite,Urine Negative (Negative); PH, Urine 6.5 (5.0-8.0); Protein,Urine Negative (Negative); Specific Gravity,Urine 1.003 (1.001-1.035); Urobilinogen,Urine <2.0 mg/dL (<2.0)
[2023-08-10 14:51] LABS: Basophils % (A) 0 %; Eosinophils # (A) 0.1 k/uL (0-0.7); Eosinophils % (A) 1 %; HCT 39.5 % (34.0-46.0); HGB 13.3 gm/dL (11.4-16.0); Lymphocytes # (A) 1.1 k/uL (1.0-4.8); Lymphocytes % (A) 10 %; MCH 30.5 pg (25.0-35.0); MCHC 33.6 g/dL (31.0-37.0); MCV 90.7 fL (80.0-100.0); Mean Platelet Volume 8.8; Monocytes # (A) 0.4 k/uL (0-1.0); Monocytes % (A) 4 %; Neutrophils # (A) 8.8 k/uL (1.3-7.7); Neutrophils % (A) 83 %; Platelet Count 219 k/uL (150-450); RBC 4.35 m/uL (3.80-5.40); RDW 12.8 % (11.5-15.5); WBC 10.7 k/uL (3.8-10.6)
[2023-08-10 14:57] LABS: Creatinine,Urine Random 23.8 mg/dL; Protein/Creatinine Ratio,Urine 0.63
[2023-08-10 14:59] LABS: ALT 16 U/L (4-34); AST 28 U/L (14-36); African American GFR (CKD) >90 (>60 ml/min/1.73 sqM); Blood Urea Nitrogen 8 mg/dL (7-17); LDH 170 U/L (120-246); Non-African American GFR(CKD) >90 (>60 ml/min/1.73 sqM); Uric Acid 4.3 mg/dL (3.7-7.4)
[2023-08-10 15:08] LABS: INR 0.8 (<1.2); Partial Thromboplastin Time 23.6 sec (22.0-30.0); Prothrombin Time 9.5 sec (10.0-12.5)
[2023-08-10] MEDS ORDERED: TRANEXAMIC 1,000 MG/100ML-NACL 1,000 MG in EMPTY BAG 1 BAG IV PRN (18:11)
[2023-08-10] MEDS ORDERED: TERBUTALINE 1 MG/ML VIAL SQ PRN (18:11)
[2023-08-10] MEDS ORDERED: OXYTOCIN 10 UNIT/ML 1 ML VIAL IM PRN (18:11)
[2023-08-10] MEDS ORDERED: METHYLERGONOVINE 0.2 MG/ML 1 ML AMP IM PRN (18:11)
[2023-08-10] MEDS ORDERED: miSOPROStoL 200 MCG TAB PO PRN (18:11)
[2023-08-10] MEDS ORDERED: CARBOPROST TROMETHAMINE 250 MCG/ML 1 ML AMP IM PRN (18:11)
[2023-08-10] MEDS ORDERED: LIDOCAINE 0.5% (PF) 5 MG/ML (50 ML SDV) SQ PRN (18:11)
[2023-08-10] MEDS: ACETAMINOPHEN TAB 325 MG TAB PO PRN (19:32)
[2023-08-10] MEDS: LACTATED RINGERS 1,000 ML IV SCH (21:57)
[2023-08-11] MEDS: OXYTOCIN 30 UNITS/500 ML NS 30 UNIT in SALINE 1 500ML.BAG IV SCH (05:52)
--- NOTE | 2023-08-11 07:53 | P.HPOB ---
History of Present Illness H&P Date: 08/11/23 Chief Complaint: pre-eclampsia 28 year old at 37 weeks 6 days presented to my office with elevated BP and headache. Labs showed a p/c ratio of 0.6 and pt diagnosed with pre-eclampsia. This was discussed with patient and the decision was made to move toward delivery. Her cervix is 1-2/70/-2 and she is hailey. heart tones category 1. Review of Systems All systems: negative Constitutional: Denies chills, Denies fever Eyes: denies blurred vision, denies pain Ears, nose, mouth and throat: Denies headache, Denies sore throat Cardiovascular: Denies chest pain, Denies shortness of breath Respiratory: Denies cough Gastrointestinal: Denies abdominal pain, Denies diarrhea, Denies nausea, Denies vomiting Genitourinary: Denies dysuria, Denies hematuria Musculoskeletal: Denies myalgias Integumentary: Denies pruritus, Denies rash Neurological: Denies numbness, Denies weakness Psychiatric: Denies anxiety, Denies depression Endocrine: Denies fatigue, Denies weight change Past Medical History Past Medical History: No Reported History Additional Past Medical History / Comment(s): migraines History of Any Multi-Drug Resistant Organisms: None Reported Past Surgical History: Appendectomy Past Anesthesia/Blood Transfusion Reactions: No Reported Reaction Past Psychological History: No Psychological Hx Reported Smoking Status: Former smoker Past Alcohol Use History: Occasional Past Drug Use History: Marijuana - Past Family History Father History Unknown: Yes Family Medical History: Hyperlipidemia, Hypertension Medications and Allergies Home Medications Medication Instructions Recorded Confirmed Type Vit No.179/Iron/Folic 1 tab PO DAILY 06/18/23 08/10/23 History [ Tablet] Allergies Allergy/AdvReac Type Severity Reaction Status Date / Time No Known Allergies Allergy Verified 08/10/23 14:16 Exam Osteopathic Statement: *. No significant issues noted on an osteopathic structural exam other than those noted in the History and Physical/Consult. Vital Signs Temp Pulse Resp BP Pulse Ox 08/11/23 03:12 64 15 111/73 98 08/10/23 23:27 96.7 F L 80 16 114/71 98 08/10/23 20:00 132/92 08/10/23 16:56 98.2 F 97 16 131/90 100 02/20/24 16:35 98.2 F 97 16 131/90 08/10/23 16:33 98.2 F 97 16 131/90 08/10/23 16:19 98.2 F 97 20 131/90 100 08/10/23 14:32 135/94 08/10/23 14:18 136/100 Intake and Output 08/10/23 08/11/23 08/11/23 22:59 06:59 14:59 Other: # Voids 2 1 Weight 80.286 kg Heart: Regular rate and rhythm Lungs: Clear to auscultation bilaterally Abdomen: Soft, nontender Extremities: Negative Homans sign Results Result Diagrams: 08/10/23 14:35 08/10/23 14:35 Abnormal Lab Results - Last 24 Hours (Table) 08/10/23 08/10/23 Range/Units 14:35 14:35 WBC 10.7 H (3.8-10.6) k/uL Neutrophils # 8.8 H (1.3-7.7) k/uL PT 9.5 L (10.0-12.5) sec Fibrinogen 582 H (200-500) mg/dL Assessment and Plan (1) Preeclampsia Current Visit: No Status: Acute Code(s): O14.90 - UNSPECIFIED PRE-ECLAMPSIA, UNSPECIFIED TRIMESTER SNOMED Code(s): 384907171 (2) 37 weeks gestation of Current Visit: Yes Status: Acute Code(s): Z3A.37 - 37 WEEKS GESTATION OF SNOMED Code(s): 34543406 Plan: 1. induction of labor with amniotomy and pitocin 2. anticipate normal vaginal delivery
[2023-08-11] MEDS ORDERED: SODIUM CHLORIDE 0.9% 250 ML BAG ONE (11:12)
[2023-08-11] MEDS ORDERED: ROPIVACAINE 5 MG/ML 30 ML VIAL ONE (11:12)
[2023-08-11] MEDS ORDERED: fentaNYL (PF) 50 MCG/ML 5 ML AMP ONE (11:12)
[2023-08-11] MEDS ORDERED: LANOLIN CREAM 1 GM TUBE TOPICAL PRN (14:17)
[2023-08-11] MEDS ORDERED: ZOLPIDEM 5 MG TAB PO PRN (14:17)
[2023-08-11] MEDS ORDERED: HYDROCORTISONE 2.5% RECTAL CREAM 30 GM TUBE RECTAL PRN (14:17)
[2023-08-11] MEDS ORDERED: diphenhydrAMINE 25 MG CAP PO PRN (14:17)
[2023-08-11] MEDS ORDERED: diphenhydrAMINE 50 MG CAP PO PRN (14:17)
[2023-08-11] MEDS ORDERED: SIMETHICONE 80 MG CHEWABLE PO PRN (14:17)
[2023-08-11] MEDS ORDERED: BENZOCAINE/MENTHOL SPRAY 1 GM/SPRAY AEROSOL TOPICAL PRN (14:17)
[2023-08-11] MEDS ORDERED: OXYTOCIN 30 UNITS/500 ML NS 30 UNIT in SALINE 1 500ML.BAG IV SCH (14:30)
[2023-08-11] MEDS: IBUPROFEN 600 MG TAB PO PRN (20:20)
[2023-08-12] MEDS: SENNOSIDES-DOCUSATE SODIUM 1 EACH TAB PO SCH (04:06)
[2023-08-12 07:16] LABS: Basophils # (A) 0.1 k/uL (0-0.2); Basophils % (A) 1 %; Eosinophils # (A) 0.1 k/uL (0-0.7); Eosinophils % (A) 1 %; HCT 37.5 % (34.0-46.0); HGB 12.5 gm/dL (11.4-16.0); Lymphocytes # (A) 1.8 k/uL (1.0-4.8); Lymphocytes % (A) 18 %; MCH 30.5 pg (25.0-35.0); MCHC 33.5 g/dL (31.0-37.0); MCV 91.3 fL (80.0-100.0); Mean Platelet Volume 8.8; Monocytes # (A) 0.5 k/uL (0-1.0); Monocytes % (A) 5 %; Neutrophils # (A) 7.5 k/uL (1.3-7.7); Neutrophils % (A) 74 %; Platelet Count 210 k/uL (150-450); RDW 12.8 % (11.5-15.5); WBC 10.2 k/uL (3.8-10.6)
--- NOTE | 2023-08-12 07:41 | P.PROBDLV ---
Vaginal Delivery Note - . Vaginal Delivery Note: 28 year old at 37 weeks 6 days presented to my office with elevated BP and headache. Labs showed a p/c ratio of 0.6 and pt diagnosed with pre-eclampsia. This was discussed with patient and the decision was made to move toward delivery. Her cervix is 1-2/70/-2 and she is hailey. heart tones category 1. Amniotomy performed at 7:42 AM clear fluid noted. Pitocin had been started. Patient soon became uncomfortable. In the afternoon she got an epidural and was comfortable. Her cervix was completely dilated at 1325. She pushed, delivered a viable female infant over intact perineum under epidural anesthesia at 1337. Head delivered OA, nuchal cord 2 reduced, anterior shoulder delivered gentle downward guidance for by posterior shoulder and rest of body. Nose and mouth bulb suctioned, cord clamped and cut, infant placed on mother's abdomen. Apgars 9, 10, weight 6 lbs. 2 oz. Placenta delivered spontaneously, intact with three-vessel cord at 1340. Vagina, cervix, perineum inspected. No lacerations noted. Estimated blood loss 50 mL. Mother and baby in stable condition.
--- NOTE | 2023-08-12 07:43 | P.DS ---
Providers Date of admission: 08/10/23 15:38 Expected date of discharge: 08/12/23 Attending physician: Kendra Newberry Primary care physician: Stated None - Discharge Diagnosis(es) (1) Preeclampsia Current Visit: No Status: Resolved (2) 37 weeks gestation of Current Visit: Yes Status: Resolved (3) Status post normal vaginal delivery Current Visit: Yes Status: Acute Hospital Course: Patient presented for induction of labor due to preeclampsia. She underwent this procedure without complication. course has been uneventful. She denies nausea, vomiting, chest pain, shortness of breath or calf pain or headaches or vision changes. She'll be discharged home day #1 in stable condition to follow-up with me in 6 weeks. Plan - Discharge Summary New Discharge Prescriptions: New Ibuprofen [Motrin] 600 mg PO Q6HR PRN #30 tab PRN Reason: Mild Pain (Scale 1 To 3) No Action Vit No.179/Iron/Folic [ Tablet] 1 tab PO DAILY Discharge Medication List Vit No.179/Iron/Folic [ Tablet] 1 tab PO DAILY 06/18/23 [History] Ibuprofen [Motrin] 600 mg PO Q6HR PRN #30 tab 08/12/23 [Rx] Follow up Appointment(s)/Referral(s): Kendra Newberry DO [Doctor of Osteopathic Medicine] - 6 Weeks Discharge Disposition: HOME SELF-CARE
[2023-08-12 08:59] VITALS: BP 129/83; PULSE 61; RESP 14; TEMP 98
== END 2023-08-12 14:45 | disposition home or self-care (01) | DRG 560 ==
LOC: FBPOP 13:59 → 4FBP 15:38
PROVIDERS: ADMIT Obstetrics & Gynecology; ATTEND Obstetrics & Gynecology
PROC: 10E0XZZ Delivery of Products of Conception, External Approach (ICD-10-PCS; principal; 2023-08-12)
PROC: 10907ZC Drainage of Amniotic Fluid, Therapeutic from Products of Conception, Via Natural or Artificial Opening (ICD-10-PCS; 2023-08-12)
PROC: 3E033VJ Introduction of Other Hormone into Peripheral Vein, Percutaneous Approach (ICD-10-PCS; 2023-08-12)
DX: O14.94 Unspecified pre-eclampsia, complicating childbirth (principal); O69.81X0 Labor and delivery complicated by cord around neck, without compression, not applicable or unspecified; Z37.0 Single live birth; Z3A.37 37 weeks gestation of pregnancy; Z87.891 Personal history of nicotine dependence
CPT/HCPCS: 59025; 81003; 82565; 82570; 83615; 84156; 84450; 84460; 84520; 84550; 85025; 85384; 85610; 85730; 86850; 86900; 86901

== ENCOUNTER 2024-10-18 10:13 | Day surgery (SDC) | payer OTHER ==
[2024-10-18 10:51] VITALS: RESP 16; TEMP 98.3
[2024-10-18] MEDS: IV FLUID CONTINUATION 1,000 ML IV ONE (10:51)
[2024-10-18] MEDS: LACTATED RINGERS 1,000 ML IV SCH (10:53)
[2024-10-18] MEDS ORDERED: PROPOFOL 10 MG/ML 20 ML VIAL IV ONE (11:05)
--- NOTE | 2024-10-18 11:16 | P.PCN ---
Date of Procedure: 10/18/24 Procedure(s) Performed: BRIEF HISTORY: Patient is a 29-year-old, pleasant, white female scheduled for an upper endoscopy as a part evaluation function history of GERD and intermittent dysphagia to solids. She also complains of atypical chest pain.. PROCEDURE PERFORMED: Esophagogastroduodenoscopy with biopsy and dilation. PREOPERATIVE DIAGNOSIS: GERD/intermittent dysphagia to solids and atypical chest pain. IV sedation per anesthesia. PROCEDURE: After informed consent was obtained, the patient was brought into the endoscopy unit. IV sedation was administered by Anesthesia under continuous monitoring. Initially the Olympus GIF-140 video endoscope was inserted into the mouth. Esophagus intubated without any difficulty. It was gradually advanced into the stomach and duodenum and carefully examined. The bulb and the second part of the duodenum appeared normal. The scope at this time was withdrawn to the stomach, adequately insufflated with air, and upon careful examination, mucosa of the antrum, had mild gastritis and biopsies were done from this area. Mucosa of the body, cardia and the fundus appeared normal. The scope was then withdrawn into the esophagus. The GE junction was located at 39 cm from the incisors. There was a distal esophageal Schatzki's ring identified and this was dilated using 20 mm TTS balloon for 30 seconds. The rest of the esophagus appeared normal. There were no erosions or ulcerations seen, biopsies were done from the distal esophagus and the patient tolerated the procedure well. IMPRESSION: 1. Distal esophageal Schatzki's ring status post balloon dilation using 20 mm TTS balloon. 2. Mild antral gastritis. RECOMMENDATIONS: The findings of this examination were discussed with the patient as well as her family. She was advised to follow-up with the biopsy results. Remain on clear liquids for 2 hours. Continue with omeprazole 20 mg daily and follow antireflux measures..
[2024-10-18 12:05] VITALS: BP 138/81; PULSE 64
== END 2024-10-18 11:55 ==
LOC: ORWHC2ENDO 10:13
PROVIDERS: ATTEND Internal Medicine Gastroenterology
DX: K22.2 Esophageal obstruction (principal); K29.50 Unspecified chronic gastritis without bleeding; B96.81 Helicobacter pylori [H. pylori] as the cause of diseases classified elsewhere; K21.9 Gastro-esophageal reflux disease without esophagitis
CPT/HCPCS: 81025; 88305; 88342; 43239; 43249; J2704; C1726